=== PATIENT | female | born 1955 | race Caucasian/White ===

== ENCOUNTER 2017-04-01 09:59 | Emergency (ER) | payer SELFPAY ==
[~2017-04-01] VITALS: Ht 160 cm; Wt 118.0 kg
[~2017-04-01 09:59] MED LIST: ALBU8I INH; METH750T2 PO; TRAM50 PO
[2017-04-01 10:01] VITALS: BP 139/62; PULSE 64; RESP 36; TEMP 97.3; O2SAT 98
[2017-04-01] MEDS ORDERED: IBUP800T23 PO (10:34)
[2017-04-01] MEDS ORDERED: ALBUAER3 INH (10:34)
--- NOTE | 2017-04-01 10:47 | PD ---
HPI Chief Complaint: Respiratory Symptoms Time Seen by Provider: 10:25 Travel History International Travel<30 days: No Contact w/Intl Traveler<30days: No Traveled to known affect area: No History of Present Illness HPI 61-year-old female came to the emergency room with history of shortness of breath last night. Patient says she was unable to sleep because he kept waking her up with a sensation like she was choking. Patient says she has never had this before. There was no chest pain associated with it. She does have history of anxiety and is wondering if it could be anxiety because she feels like when she came in the room she has come down. She says she's never been diagnosed with COPD or asthma but she does have an inhaler at home that she uses for occasional shortness of breath. Patient says that this morning she used 2 puffs of her inhaler and is wondering if that could be the reason that she is feeling better now. Patient did have significant tachypnea in triage. She says she does not have insurance or money and hence does not have a primary care. She did not have any workup done in past 3-4 years. She is not taking any medications either even though she supposed to take medications for depression. No history of suicidal ideations. She seems comfortable and kept apologizing because she thinks she now feels silly to come to the emergency room. [facility] Past Medical History Narrative Medical List of her past medical, surgical, social and family history is reviewed from the nursing note. Hx Anticoagulant Therapy: No Asthma: Yes Bipolar Disorder: Yes Anxiety: Yes Depression: Yes Heart Rhythm Problems: No Cardiac Catheterization: No Cardiovascular Problems: No High Cholesterol: No Chemotherapy: No Congestive Heart Failure: No Cerebrovascular Accident: No Diabetes: No Diminished Hearing: Yes (BILAT HEARING AIDS) Fibromyalgia: Yes Hypertension: No Psychiatric: Yes (PTSD) Respiratory: No Myocardial Infarction: No Tetanus Vaccination: > 5 Years Influenza Vaccination: No ?: Unknown Menopausal: Yes : 2 Para: 1 : 1 Past Surgical History Section: Yes Cholecystectomy: Yes Coronary Artery Bypass Graft: No Genitourinary Surgery: Yes (CYSTOSCOPY) Gynecologic Surgery: Yes (Hysterectomy) Hysterectomy: No Social History Alcohol Use: No Tobacco Use: No Substance Use: No Allergies-Medications (Allergen,Severity, Reaction): Coded Allergies: Codeine (Verified Allergy, Severe, UNKNOWN, 04/01/17) Percodan (Verified Allergy, Severe, 04/01/17) Naprosyn (Verified Allergy, Unknown, 04/01/17) Comments List of her allergies reviewed from the nursing note. Reported Meds & Prescriptions Reported Meds & Active Scripts Active Reported Ibuprofen 800 Mg Tab 800 Mg PO Q8H PRN Proair Hfa 8.5 GM Inh (Albuterol Sulfate) 90 Mcg/Act Aer 2 Puff INH Q6H PRN 108 mcg/actuation Narrative Medication List of her home medications reviewed from the nursing note. Review of Systems Except as stated in HPI: all other systems reviewed are Neg Physical Exam Narrative GENERAL: Awake, alert, morbidly obese, anxious SKIN: Focused skin assessment warm/dry. HEAD: Atraumatic. Normocephalic. EYES: Pupils equal and round. No scleral icterus. No injection or drainage. ENT: No nasal bleeding or discharge. Mucous membranes pink and moist. NECK: Trachea midline. No JVD. CARDIOVASCULAR: Regular rate and rhythm. No murmur appreciated. RESPIRATORY: No accessory muscle use. Clear to auscultation. Breath sounds equal bilaterally. GASTROINTESTINAL: Abdomen soft, non-tender, nondistended. Hepatic and splenic margins not palpable. MUSCULOSKELETAL: No obvious deformities. No clubbing. No cyanosis. No edema. NEUROLOGICAL: Awake and alert. No obvious cranial nerve deficits. Motor grossly within normal limits. Normal speech. PSYCHIATRIC: Appropriate mood and affect; insight and judgment normal. Tearful Data Data Last Documented VS Vital Signs Date Time Temp Pulse Resp B/P Pulse Ox O2 Delivery O2 Flow Rate FiO2 04/01/17 11:12 97 Room Air 04/01/17 10:27 67 22 04/01/17 10:01 97.3 139/62 Orders Complete Blood Count With Diff (04/01/17 10:52) Basic Metabolic Panel (Bmp) (04/01/17 10:52) B-Type Natriuretic Peptide (04/01/17 10:52) Magnesium (Mg) (04/01/17 10:52) Troponin I (04/01/17 10:52) Iv Access Insert/Monitor (04/01/17 10:52) Ecg Monitoring (04/01/17 10:52) Oximetry (04/01/17 10:52) Oxygen Administration (04/01/17 10:52) Chest, Single Ap (04/01/17 10:52) Sodium Chloride 0.9% Flush (Ns Flush) (04/01/17 11:00) Labs Laboratory Tests Test 04/01/17 11:11 White Blood Count 6.6 TH/MM3 Red Blood Count 3.99 MIL/MM3 Hemoglobin 12.2 GM/DL Hematocrit 35.4 % Mean Corpuscular Volume 88.7 FL Mean Corpuscular Hemoglobin 30.6 PG Mean Corpuscular Hemoglobin 34.6 % Concent Red Cell Distribution Width 13.9 % Platelet Count 203 TH/MM3 Mean Platelet Volume 6.7 FL Neutrophils (%) (Auto) 59.7 % Lymphocytes (%) (Auto) 31.0 % Monocytes (%) (Auto) 5.0 % Eosinophils (%) (Auto) 3.1 % Basophils (%) (Auto) 1.2 % Neutrophils # (Auto) 3.9 TH/MM3 Lymphocytes # (Auto) 2.0 TH/MM3 Monocytes # (Auto) 0.3 TH/MM3 Eosinophils # (Auto) 0.2 TH/MM3 Basophils # (Auto) 0.1 TH/MM3 CBC Comment DIFF FINAL Differential Comment Sodium Level 141 MEQ/L Potassium Level 4.3 MEQ/L Chloride Level 108 MEQ/L Carbon Dioxide Level 26.0 MEQ/L Anion Gap 7 MEQ/L Blood Urea Nitrogen 14 MG/DL Creatinine 0.62 MG/DL Estimat Glomerular Filtration 97 ML/MIN Rate Random Glucose 146 MG/DL Calcium Level 8.5 MG/DL Magnesium Level 2.0 MG/DL Troponin I LESS THAN 0.02 NG/ML B-Type Natriuretic Peptide 27 PG/ML MDM Medical Decision Making Medical Screen Exam Complete: Yes Emergency Medical Condition: Yes Medical Record Reviewed: Yes Differential Diagnosis Congestive heart failure, pneumonia, COPD exacerbation, anxiety Narrative Course 11:28 AM patient initially did not want any workup since she thinks that this is probably her anxiety and her blood pressure remained stable in triage. I explained to her that without looking at an EKG or a chest x-ray and some basic blood test it would be difficult for me to diagnose her with anxiety during this incidence. However if she does not want a workup due to financial reasons that would be her adult decision but she will have to leave against medical advise. Patient at that point changed her mind and said she would go with the workup. Awaiting for the test results. 12:09 PM blood test results are back and they're within acceptable limits. Chest x-ray was within normal limit as well. Given her body habitus I think patient may be suffering from sleep apnea. Patient agrees with this as well. I will recommend her to follow-up with a chemical engraver for which she will require a probably a referral from a primary care doctor. I will give her the name of the chemical engraver who is on-call for us at this point to make the phone call and follow up with primary care. We'll give her the flyer for the free walk-in clinic as well. Procedures EKG Prior to Arrival: No Diagnosis Primary Impression: Shortness of breath Additional Impressions: possible sleep apnea Morbid obesity with BMI of 45.0-49.9, adult Referrals: Kareem Perry MD 1 week Additional Instructions: Please try to find a primary care for yourselves. Follow-up with the chemical engraver who is name and number been given to you. Making a phone call to get an appointment for possible sleep apnea study. Given your body habitus there is a high chance for your nightly short of breath from sleep apnea in which case you may require a CPAP machine. Please return to the ER if the condition worsens or any other new concerns. You may even try the free walk-in clinic was slight has been given to you. Med/Other Pt SpecificInfo: No Change to Meds Disposition: 01 DISCHARGE HOME Condition: Stable Grupo Lopez MD Apr 01, 2017 10:47 Grupo Lopez MD Apr 01, 2017 10:47
[2017-04-01] MEDS ORDERED: SODIUM CHLORIDE 0.9% FLUSH 10 ML FLUSH IVF PRN (11:00)
[2017-04-01 11:12] VITALS: O2SAT 97
[2017-04-01 11:26] LABS: AUTOMATED NEUTROPHIL # 3.9 TH/MM3 (1.8-7.7); BASOPHIL # 0.1 TH/MM3 (0-0.2); BASOPHIL % 1.2 % (0.0-2.0); EOSINOPHIL # 0.2 TH/MM3 (0-0.4); EOSINOPHIL % 3.1 % (0.0-4.0); HEMATOCRIT 35.4 % (35.0-46.0); HEMO FLAGS DIFF FINAL; MEAN CELL VOLUME 88.7 FL (80.0-100.0); MEAN CORPUSCULAR HEMOGLOBIN 30.6 PG (27.0-34.0); MEAN CORPUSCULAR HGB CONC 34.6 % (32.0-36.0); NEUT % 59.7 % (16.0-70.0); PLATELET COUNT 203 TH/MM3 (150-450); RED BLOOD COUNT 3.99 MIL/MM3 (4.00-5.30); RED CELL DISTRIBUTION WIDTH 13.9 % (11.6-17.2); WHITE BLOOD COUNT 6.6 TH/MM3 (4.0-11.0)
[2017-04-01 11:44] LABS: ANION GAP 7 MEQ/L (5-15); BLOOD UREA NITROGEN 14 MG/DL (7-18); CHLORIDE 108 MEQ/L (98-107); GLOMERULAR FILTRATION RATE 97 ML/MIN (>89); POTASSIUM 4.3 MEQ/L (3.5-5.1); SODIUM (NA) 141 MEQ/L (136-145)
--- NOTE | 2017-04-01 11:56 | RADRPT ---
EXAM DATE/TIME: 04/01/2017 11:19 [facility] COMPARISON: CHEST PA & LAT, December 03, 2015, 0:18. INDICATIONS : Shortness of breath today MEDICAL HISTORY : None. SURGICAL HISTORY : None. ENCOUNTER: Initial ACUITY: 1 day PAIN SCORE: 0/10 LOCATION: Bilateral chest FINDINGS: Single AP view of the chest. The lungs are clear. Mildly prominent cardiac silhouette unchanged. No e vidence of pleural effusion or pneumothorax. CONCLUSION: No acute cardiopulmonary disease identified. Ken Magana MD on April 01, 2017 at 11:53 Board Certified Radiologist. This report was verified electronically.
== END 2017-04-01 12:30 | disposition home or self-care (01) ==
LOC: NEPD 09:59
DX: R06.02 Shortness of breath (principal); E66.01 Morbid (severe) obesity due to excess calories; Z68.42 Body mass index [BMI] 45.0-49.9, adult; J45.909 Unspecified asthma, uncomplicated
CPT/HCPCS: 71010; 80048; 83735; 83880; 84484; 85025; 99284

== ENCOUNTER 2017-06-27 14:43 | Observation (INO) | payer SELFPAY ==
[~2017-06-27] VITALS: Ht 154.9 cm; Wt 116.2 kg
[2017-06-27] VITALS (10 sets, daily range): BP systolic 119–164; BP diastolic 56–89; PULSE 59–156; RESP 16–30; TEMP 97.9; O2SAT 95–98
[~2017-06-27 14:43] MED LIST changes: -ALBU8I INH; +ALBUAER3 INH; +IBUP800T23 PO; -METH750T2 PO; -TRAM50 PO
[2017-06-27] MEDS ORDERED: DILTIAZEM HCL 25 MG/5 ML VIAL IV PUSH ONE (15:15)
[2017-06-27] MEDS ORDERED: SODIUM CHLORIDE 0.9% FLUSH 10 ML FLUSH IVF PRN (15:15)
[2017-06-27] MEDS ORDERED: SODIUM CHLORIDE 0.9% FLUSH 5 ML FLUSH IV FLUSH PRN (15:15)
--- NOTE | 2017-06-27 15:27 | PD ---
HPI . Dyspnea Chief Complaint: Respiratory Symptoms Time Seen by Provider: 14:56 Travel History International Travel<30 days: No Contact w/Intl Traveler<30days: No Traveled to known affect area: No History of Present Illness HPI This patient presents to us by EVAC chief complaint shortness of breath. She has had cough, congestion and shortness of breath for about 5 days. Her shortness of breath has become acutely worse over the last 2 days. She is having dyspnea on exertion. He subsequently called today and she was brought to the hospital. They treated her with an albuterol Neb en route to the hospital. In addition to the dyspnea, she is complaining with a pressure-like sensation in her chest. PFSH Past Medical History Hx Anticoagulant Therapy: Yes Asthma: Yes Bipolar Disorder: Yes Anxiety: Yes Depression: Yes Heart Rhythm Problems: No Cardiac Catheterization: No Cardiovascular Problems: No High Cholesterol: No Chemotherapy: No Congestive Heart Failure: No Cerebrovascular Accident: No Diabetes: No Patient Takes Glucophage: No Diminished Hearing: Yes (BILAT HEARING AIDS, NOT IN PLACED LEFT AT HOME ) Fibromyalgia: Yes Hiatal Hernia: Yes Hypertension: No Medical other: Yes (CHRONIC FATIGUE ) Psychiatric: Yes (PTSD) Respiratory: Yes (BRONCHITIS ) Immunizations Current: Yes Myocardial Infarction: No Pneumonia: Yes Sleep Apnea: Yes Tetanus Vaccination: > 5 Years Influenza Vaccination: No ?: Not Menopausal: Yes : 2 Para: 1 : 1 Past Surgical History Abdominal Surgery: Yes (HERNIA ) Section: Yes Cholecystectomy: Yes Coronary Artery Bypass Graft: No Genitourinary Surgery: Yes (CYSTOSCOPY) Gynecologic Surgery: Yes ( ) Hysterectomy: No Tonsillectomy: Yes Social History Alcohol Use: No Tobacco Use: No (QUIT LONG TIME AGO ) Substance Use: No (DENIES ) Allergies-Medications (Allergen,Severity, Reaction): Coded Allergies: aspirin (Unverified Allergy, Severe, 06/13/17) codeine (Unverified Allergy, Severe, UNKNOWN, 06/13/17) oxycodone (Unverified Allergy, Severe, 06/13/17) naproxen (Unverified Allergy, Unknown, 06/13/17) Reported Meds & Prescriptions Reported Meds & Active Scripts Active Reported Flexeril (Cyclobenzaprine HCl) 10 Mg Tab 10 Mg PO TID PRN Ibuprofen 800 Mg Tab 800 Mg PO Q8H PRN Proair Hfa 8.5 GM Inh (Albuterol Sulfate) 90 Mcg/Act Aer 2 Puff INH Q6H PRN 108 mcg/actuation Review of Systems Except as stated in HPI: all other systems reviewed are Neg Cardiovascular: Positive: Chest Pain or Discomfort Respiratory: Positive: Shortness of Breath Physical Exam Narrative GENERAL: This patient is awake and alert and does not appear to be in any acute distress. SKIN: Warm and dry. HEAD: Atraumatic. Normocephalic. EYES: Pupils equal and round. Extraocular movements are intact. ENT: No nasal bleeding or discharge. Mucous membranes pink and moist. NECK: Trachea midline. Neck is supple. CARDIOVASCULAR: Irregularly irregular rate and rhythm with an initial rate of about 140-150. RESPIRATORY: No accessory muscle use. Diminished breath sounds. I don't hear any wheezing. GASTROINTESTINAL: Abdomen soft, non-tender, nondistended. MUSCULOSKELETAL: No obvious deformities. 2+ pretibial pitting edema. NEUROLOGICAL: Awake and alert. No obvious cranial nerve deficits. Motor grossly within normal limits. Normal speech. PSYCHIATRIC: Appropriate mood and affect; insight and judgment normal. Data Data Last Documented VS Vital Signs Date Time Temp Pulse Resp B/P (MAP) Pulse Ox O2 Delivery O2 Flow Rate FiO2 06/27/17 16:06 88 16 97 Nasal Cannula 2.00 Orders Orders Ecg Monitoring (06/27/17 15:01) Blood Pressure (06/27/17 15:01) Iv Access Insert/Monitor (06/27/17 15:01) Oximetry (06/27/17 15:01) Vital Signs (06/27/17 15:01) Diltiazem Inj (Cardizem Inj) (06/27/17 15:15) Sodium Chloride 0.9% Flush (Ns Flush) (06/27/17 15:15) Complete Blood Count With Diff (06/27/17 15:03) Comprehensive Metabolic Panel (06/27/17 15:03) B-Type Natriuretic Peptide (06/27/17 15:03) Act Partial Throm Time (Ptt) (06/27/17 15:03) Prothrombin Time / Inr (Pt) (06/27/17 15:03) Magnesium (Mg) (06/27/17 15:03) Ckmb (Isoenzyme) Profile (06/27/17 15:03) Troponin I (06/27/17 15:03) Oxygen Administration (06/27/17 15:03) Chest, Single Ap (06/27/17 15:03) Sodium Chloride 0.9% Flush (Ns Flush) (06/27/17 15:15) Electrocardiogram (06/27/17 ) CKMB (06/27/17 15:25) CKMB% (06/27/17 15:25) Consult Cardiology (06/27/17 ) (Hub Use Only)Inp Phy Cons/Ref (06/27/17 ) Admit Order (Ed Use Only) (06/27/17 16:57) Labs Laboratory Tests Test 06/27/17 15:25 White Blood Count 7.7 TH/MM3 Red Blood Count 4.18 MIL/MM3 Hemoglobin 12.8 GM/DL Hematocrit 38.0 % Mean Corpuscular Volume 90.8 FL Mean Corpuscular Hemoglobin 30.5 PG Mean Corpuscular Hemoglobin Concent 33.6 % Red Cell Distribution Width 14.1 % Platelet Count 179 TH/MM3 Mean Platelet Volume 6.3 FL Neutrophils (%) (Auto) 70.4 % Lymphocytes (%) (Auto) 23.0 % Monocytes (%) (Auto) 3.6 % Eosinophils (%) (Auto) 2.3 % Basophils (%) (Auto) 0.7 % Neutrophils # (Auto) 5.4 TH/MM3 Lymphocytes # (Auto) 1.8 TH/MM3 Monocytes # (Auto) 0.3 TH/MM3 Eosinophils # (Auto) 0.2 TH/MM3 Basophils # (Auto) 0.1 TH/MM3 CBC Comment DIFF FINAL Differential Comment Prothrombin Time 10.3 SEC Prothromb Time International Ratio 0.9 RATIO Activated Partial Thromboplast Time 21.4 SEC Blood Urea Nitrogen 14 MG/DL Creatinine 0.81 MG/DL Random Glucose 187 MG/DL Total Protein 7.6 GM/DL Albumin 3.1 GM/DL Calcium Level 8.4 MG/DL Magnesium Level 2.0 MG/DL Alkaline Phosphatase 120 U/L Aspartate Amino Transf (AST/SGOT) 27 U/L Alanine Aminotransferase (ALT/SGPT) 28 U/L Total Bilirubin 0.2 MG/DL Sodium Level 141 MEQ/L Potassium Level 3.8 MEQ/L Chloride Level 107 MEQ/L Carbon Dioxide Level 23.6 MEQ/L Anion Gap 10 MEQ/L Estimat Glomerular Filtration Rate 71 ML/MIN Total Creatine Kinase 404 U/L Creatine Kinase MB 2.5 NG/ML Creatine Kinase MB % 0.6 % Troponin I 0.03 NG/ML B-Type Natriuretic Peptide 75 PG/ML MDM Medical Decision Making Medical Screen Exam Complete: Yes Emergency Medical Condition: Yes Medical Record Reviewed: Yes (medical history significant for asthma, obesity and bipolar disorder.) Interpretation(s) Initial EKG shows atrial fibrillation with a rapid ventricular response. Repeat EKG shows a normal sinus rhythm with no acute ischemic changes. Differential Diagnosis Differential diagnosis of dyspnea includes but is not limited to congestive heart failure, pneumonia, wheezing, pneumothorax, pulmonary embolism Narrative Course This patient presents to us by EVAC with the chief complaint of dyspnea. She was found to be in atrial fibrillation with rapid ventricular response at presentation. IV Cardizem was ordered. I went back to reassess the patient couple minutes later and she was in a sinus rhythm. She has not yet received her Cardizem. The nurse reports that the patient is a difficult IV stick and she has not yet IV access. The nurse did not notice the spontaneous cardiac conversion. CBC & BMP Diagram 06/27/17 15:25 Total Protein 7.6, Albumin 3.1 L, Calcium Level 8.4 L, Magnesium Level 2.0, Alkaline Phosphatase 120 H, Aspartate Amino Transf (AST/SGOT) 27, Alanine Aminotransferase (ALT/SGPT) 28, Total Bilirubin 0.2 CK is 404 but MB is 2.5. Troponin is 0.03. BNP is 75. Last Impressions Chest X-Ray 06/27/17 1503 Signed Impressions: Service Date/Time: Tuesday, June 27, 2017 15:37 - CONCLUSION: No acute disease. Jg Fernandez Jr., MD This patient has remained in a normal sinus rhythm without medication. I will consult cardiology and plan to admit the patient to the hospitalist for further evaluation of new onset atrial fibrillation. Critical Care Narrative Aggregate critical care time was 35 minutes. Time to perform other separately billable procedures was not included in the critical care time. My time did not include minutes spent treating any other patients simultaneously or on activities that did not directly contribute to the patient's treatment. The services I provided to this patient were to treat and/or prevent clinically significant deterioration due to atrial fibrillation with a rapid ventricular response, dyspnea I provided critical care services requiring my management, as noted below: Chart data review, documentation time, medication orders and management, vital sign assessments/reviewing monitor data, ordering and reviewing lab tests, ordering and interpreting/reviewing x-rays and diagnostic studies, care of the patient and discussion of the patient with the admitting physicians Physician Communication Physician Communication Dr. Hastings, cardiology Dr. Paul, hospitalist Diagnosis Primary Impression: Shortness of breath Additional Impressions: Chest pain Qualified Codes: R07.9 - Chest pain, unspecified Atrial fibrillation Qualified Codes: I48.0 - Paroxysmal atrial fibrillation Admitting Information Admitting Physician Requests: Observation Condition: Stable Estela Delgado MD Jun 27, 2017 15:27
[2017-06-27] MEDS ORDERED: CYCL1TAB29 PO (15:36)
[2017-06-27 15:58] LABS: AUTOMATED NEUTROPHIL # 5.4 TH/MM3 (1.8-7.7); BASOPHIL # 0.1 TH/MM3 (0-0.2); BASOPHIL % 0.7 % (0.0-2.0); EOSINOPHIL # 0.2 TH/MM3 (0-0.4); EOSINOPHIL % 2.3 % (0.0-4.0); HEMO FLAGS DIFF FINAL; LYMPHOCYTE # 1.8 TH/MM3 (1.0-4.8); MEAN CELL VOLUME 90.8 FL (80.0-100.0); MEAN CORPUSCULAR HEMOGLOBIN 30.5 PG (27.0-34.0); MEAN CORPUSCULAR HGB CONC 33.6 % (32.0-36.0); MONO % 3.6 % (0.0-8.0); NEUT % 70.4 % (16.0-70.0); PLATELET COUNT 179 TH/MM3 (150-450); RED BLOOD COUNT 4.18 MIL/MM3 (4.00-5.30); RED CELL DISTRIBUTION WIDTH 14.1 % (11.6-17.2); WHITE BLOOD COUNT 7.7 TH/MM3 (4.0-11.0)
--- NOTE | 2017-06-27 16:06 | RADRPT ---
EXAM DATE/TIME: 06/27/2017 15:37 [facility] COMPARISON: CHEST SINGLE AP, April 01, 2017, 11:19. INDICATIONS : Short of breath. MEDICAL HISTORY : Asthma. SURGICAL HISTORY : Cholecystectomy. Tonsillectomy. ENCOUNTER: Initial ACUITY: 3 days PAIN SCORE: 0/10 LOCATION: Bilateral chest FINDINGS: A single view of the chest demonstrates the lungs to be symmetrically aerated without evidence of mas s, infiltrate or effusion. The cardiomediastinal contours are unremarkable. Osseous structures are intact. CONCLUSION: No acute disease. Jg Fernandez Jr., MD on June 27, 2017 at 16:04 Board Certified Radiologist. This report was verified electronically.
[2017-06-27 16:09] LABS: APTT (PATIENT) 21.4 SEC (24.3-30.1); INTERNATIONAL NORMALIZED RATIO 0.9 RATIO; PROTHROMBIN TIME - PATIENT 10.3 SEC (9.8-11.6)
[2017-06-27 16:15] LABS: ANION GAP 10 MEQ/L (5-15); AST (GOT) 27 U/L (15-37); BICARBONATE 23.6 MEQ/L (21.0-32.0); BLOOD UREA NITROGEN 14 MG/DL (7-18); CHLORIDE 107 MEQ/L (98-107); GLOMERULAR FILTRATION RATE 71 ML/MIN (>89); POTASSIUM 3.8 MEQ/L (3.5-5.1); SODIUM (NA) 141 MEQ/L (136-145)
[2017-06-27 16:21] LABS: ALKALINE PHOSPHATASE 120 U/L (45-117); ALT (GPT) 28 U/L (10-53); CREATINE KINASE 404 U/L (26-192); TOTAL BILIRUBIN ADULT 0.2 MG/DL (0.2-1.0)
[2017-06-27 16:34] LABS: CKMB 2.5 NG/ML (0.5-3.6)
[2017-06-27] MEDS ORDERED: NITROGLYCERIN 0.4 MG SL 25 TABS/BTL SL PRN (17:00)
[2017-06-27] MEDS ORDERED: BISACODYL 10 MG SUPP RECTAL PRN (17:00)
[2017-06-27] MEDS ORDERED: oxyCODONE/ACETAMINOPHEN 10 MG/325 MG TAB PO PRN (17:00)
[2017-06-27] MEDS ORDERED: ACETAMINOPHEN 325 MG TAB PO PRN ×2 (17:00)
[2017-06-27] MEDS ORDERED: MORPHINE SULFATE 4 MG/ML INJ IV PRN ×2 (17:00)
[2017-06-27] MEDS ORDERED: oxyCODONE/ACETAMINOPHEN 5 MG/325 MG TAB PO PRN (17:00)
[2017-06-27] MEDS ORDERED: GLUCAGON 1 MG/ML VIAL OTHER PRN (17:00)
[2017-06-27] MEDS ORDERED: SENNOSIDES 8.6 MG TAB PO PRN (17:00)
[2017-06-27] MEDS ORDERED: LACTULOSE SYRUP 20 GM/30 ML CUP PO PRN (17:00)
[2017-06-27] MEDS ORDERED: NALOXONE HCL 0.4 MG/ML AMP IV PRN (17:00)
[2017-06-27] MEDS ORDERED: MAGNESIUM HYDROXIDE SUSP 30 ML CUP PO PRN (17:00)
[2017-06-27] MEDS ORDERED: DEXTROSE 50% IN WATER 50 ML VIAL(D50) IV PRN (17:00)
[2017-06-27] MEDS ORDERED: SODIUM CHLORIDE 0.9% FLUSH 10 ML FLUSH IV FLUSH PRN ×2 (17:00)
[2017-06-27] MEDS ORDERED: ALPRAZolam 0.25 MG TAB PO PRN (17:00)
[2017-06-27] MEDS: PANTOPRAZOLE SOD 40 MG DELAYED RELEASE TAB PO SCH (17:00)
[2017-06-27] MEDS ORDERED: PROCHLORPERAZINE 25 MG SUPP RECTAL PRN (17:00)
[2017-06-27] MEDS ORDERED: ONDANSETRON HCL 4 MG/2 ML VIAL IVP PRN (17:00)
[2017-06-27] MEDS ORDERED: RESP: ALBUTEROL 2.5 MG/IPRATROPIUM 0.5 MG NEB (PRN) NEB (17:30)
[2017-06-27] MEDS ORDERED: CYCLOBENZAPRINE HCL 10 MG TAB PO PRN (17:45)
--- NOTE | 2017-06-27 18:08 | MH ---
cc: CAMRYN ORELLANA VANCE DATE OF ADMISSION 06/27/[address] Sukhdeep Hastings. HISTORY OF PRESENT ILLNESS The patient came in through the emergency department with initial complaint of respiratory symptoms. The patient is a 61-year-old morbidly obese female who presented to the emergency room by [facility] with increasing shortness of breath, has had cough, congestion and shortness of breath for about five days. Her shortness of breath has become worse. Over the less two days, she is having dyspnea on exertion and subsequently called today and was brought to the hospital. They treated her with albuterol en route. She has had dyspnea and gas had pressure-like sensation in her chest and chest pain. PAST MEDICAL HISTORY 1. History of some sort of anticoagulant therapy 2. History of asthma. 3. History of bipolar disorder 4. History of anxiety and depression. 5. History of bilateral hearing aids. 6. History of fibromyalgia. 7. History of hiatal hernia. 8. History of hypertension, 9. History of chronic fatigue syndrome. 10. History of PTSD 11. History of bronchitis 12. History of pneumonia and sleep apnea. 13. 2, para 1, one . PAST SURGICAL HISTORY 1. Hernia repair 2. section 3. Cholecystectomy, 4. Cystoscopy. 5. Tonsillectomy. SOCIAL HISTORY Denies any alcohol. She states she quit smoking a long time ago. Denies any substance abuse. ALLERGIES QUESTION ASPIRIN, OXYCODONE AND NAPROSYN MEDICATIONS Home medications she has been taking - 1. Flexeril, 2. Ibuprofen 3. ProAir HFA. REVIEW OF SYSTEMS She has had chest pain and discomfort and shortness of breath. Denies any nausea, vomiting or diarrhea, constipation, fever, chills, dysuria, urgency, frequency, hematuria, hematemesis or hematochezia. Denies any seizures or strokes. Has had the chest pain and palpitations. VITAL SIGNS: When she came in included the following: Temperature was afebrile, pulse was 88, respirations 16, pulse was 97. Vital signs: Pulse was in the 150s to 130s and then came down to the 80s, blood pressure 168/80 then 132/59 then 119/58. She is 97% on a couple liters by nasal cannula. REVIEW OF SYSTEMS 14 point review of systems done only pertinent positives listed. PHYSICAL EXAMINATION GENERAL: She is awake, alert, appears to be in some moderate distress. SKIN: Warm and dry. HEENT: Head is normocephalic, atraumatic. Pupils equal, round, reactive to light and accommodation. Extraocular muscles are intact. Oral mucosa is moist. Oropharynx is clear. Tongue is midline. NECK: There is no JVD, no thyromegaly. No carotid bruits. HHEART: Irregularly irregular. There is an S1-S2. No S3-S4. No heave or thrill or rub or gallop. LUNGS: Essentially some mild accessory muscle use. Some scattered rhonchi and maybe some mild wheezes. ABDOMEN: Soft, nontender, nondistended. Positive bowel sounds. Obese. EXTREMITIES: No clubbing or cyanosis, maybe +1-2 lower extremity edema. NEUROLOGIC: Cranial nerves II-XII appear grossly intact. Deep tendon reflexes 2/4 in upper extremity and lower-extremity bilaterally. Skin is warm and dry. No obvious rashes. PSYCHIATRIC: Appropriate mood and affect. Insight and judgment appears normal. The patient does not appear comfortable, appears to be in some moderate distress. LABORATORY DATA White blood cell count was 7.7, hemoglobin was 12.8, hematocrit was 38.0, platelet count was 179. Her PT was 10.3, INR was 0.9, PTT is 21.4. Sodium is 141, potassium is 3.8, chloride is 107, carbon dioxide is 23.6, anion gap is 10, estimated GFR is 71. Total CK is 404, CK-MB was 2.5, CK-MB percent is 0.6, troponin 0.03. BNP was 75. BUN is 14, creatinine 0.81, random glucose 187, total protein is 7.6, albumin is 3.1, calcium is 8.4, magnesium is 2.0, alk phos is 120, ALT is 28, AST is 27, total bilirubin 0.2. CARDIOLOGY STUDIES Her EKG shows paced atrial fibrillation with RVR with some ST depression. Abnormal EKG at 140 beats per minute. The repeat EKG shows sinus rhythm, minimal ST depression, borderline EKG at 90 beats per minute after she converted out of atrial fibrillation. IMAGING STUDIES Chest x-ray showed no acute disease. IMPRESSION 1. Chest pain, shortness of breath with A. Fib RVR that converted into sinus rhythm while she was here. 2. We will consult Dr. Jolley and we will trend troponins. 3. Bronchitis. We will continue on DuoNebs, Mucinex and steroids. 4. COPD. DuoNebs and steroids. 5. Atrial fibrillation converted into sinus rhythm. We will get an echocardiogram. 6. Diabetes mellitus. 7. Obstructive sleep apnea by history. 8. Morbid obesity. 9. All of these chronic issues including the following of history of bronchitis, history of sleep apnea, history of hiatal hernia, history of fibromyalgia, bilateral carpal tunnel disease, history of PTSD and bipolar and depression and anxiety and long-term history of tobacco abuse but none recently. Her family history is unknown because she is adopted. We will continue to follow her. Orders have been placed. We will continue on albuterol and Atrovent, continue on Solu-Medrol and oxygen. We will continue on antiemetics and antinausea medication. Continue on Protonix. Continue on Mucinex. Continue on morphine as needed. Continue on Tylenol as needed. Continue on low-dose sliding scale and Accu-Cheks a.c. and at bedtime. Continue on Lovenox 160 mg subcu b.i.d. Continue on Xanax as needed for anxiety. Continue on Tylenol as needed and morphine as needed and Percocet as needed. We will consult clinical trial educator. We will get a.m. labs with a CBC, CMP, TSH, free T4, hemoglobin A1c, mag and phos. We will continue with troponins and cardiac enzymes. We will continue with a diabetic diet and heart healthy diet and keep her n.p.o. after midnight. Consult cardiology and diabetic education and case management. We will get a 2-D echo. We will continue to follow her. I will place her in observation. Hopefully, will be improved in the next day or so so that she can be discharged to home. We will continue on DVT and GI prophylaxis as stated. Monitor her throughout the admission for any other issues that may arise. Camryn Orellana, DO ZHOU/ /5:30 PM /5:44 PM [facility]ITALMaricel
[2017-06-27] MEDS ORDERED: methylPREDNISolone SOD SUCC 125 MG/2 ML VIAL IV PUSH ONE (19:45)
[2017-06-27] MEDS: ENOXAPARIN SODIUM 80 MG/0.8 ML SYRINGE SQ SCH (20:00)
[2017-06-27] MEDS: SODIUM CHLORIDE 0.9% FLUSH 10 ML FLUSH IV FLUSH SCH (20:31)
[2017-06-27] MEDS: guaiFENesin E.R. 600 MG TAB PO SCH (20:31)
[2017-06-27] MEDS: DOCUSATE SODIUM 50 MG/SENNA 8.6 MG TAB PO SCH (20:31)
[2017-06-27] MEDS: RESP: ALBUTEROL 2.5 MG/IPRATROPIUM 0.5 MG NEB (SCH) NEB (20:40)
[2017-06-27] MEDS: INSULIN ASPART SUPPLEMENTAL SCALE SQ SCH (21:00)
[2017-06-27] MEDS ORDERED: SODIUM CHLORIDE 0.9% FLUSH 10 ML FLUSH IV FLUSH SCH (21:00)
[2017-06-27] MEDS: methylPREDNISolone SOD SUCC 125 MG/2 ML VIAL IV PUSH SCH (23:09)
[2017-06-28] VITALS (12 sets, daily range): BP systolic 103–135; BP diastolic 52–70; PULSE 60–76; RESP 17–19; TEMP 97.6–98.2; O2SAT 96–98
[2017-06-28 03:32] LABS: AUTOMATED NEUTROPHIL # 6.6 TH/MM3 (1.8-7.7); BASOPHIL # 0.1 TH/MM3 (0-0.2); EOSINOPHIL # 0.1 TH/MM3 (0-0.4); HEMATOCRIT 37.9 % (35.0-46.0); HEMO FLAGS DIFF FINAL; LYMPH % 8.1 % (9.0-44.0); LYMPHOCYTE # 0.6 TH/MM3 (1.0-4.8); MEAN CELL VOLUME 90.1 FL (80.0-100.0); MEAN CORPUSCULAR HEMOGLOBIN 30.3 PG (27.0-34.0); MEAN CORPUSCULAR HGB CONC 33.6 % (32.0-36.0); MONO % 0.2 % (0.0-8.0); NEUT % 89.7 % (16.0-70.0); PLATELET COUNT 228 TH/MM3 (150-450); RED BLOOD COUNT 4.21 MIL/MM3 (4.00-5.30); RED CELL DISTRIBUTION WIDTH 14.4 % (11.6-17.2); WHITE BLOOD COUNT 7.4 TH/MM3 (4.0-11.0)
[2017-06-28] MEDS: RESP: ALBUTEROL 2.5 MG/IPRATROPIUM 0.5 MG NEB (SCH) NEB ×2 (03:35→08:04)
[2017-06-28 03:44] LABS: ANION GAP 8 MEQ/L (5-15); AST (GOT) 21 U/L (15-37); BICARBONATE 26.2 MEQ/L (21.0-32.0); BLOOD UREA NITROGEN 16 MG/DL (7-18); CHLORIDE 107 MEQ/L (98-107); GLOMERULAR FILTRATION RATE 82 ML/MIN (>89); MAGNESIUM 2.1 MG/DL (1.5-2.5); POTASSIUM 3.9 MEQ/L (3.5-5.1); SODIUM (NA) 141 MEQ/L (136-145)
[2017-06-28 03:53] LABS: ALKALINE PHOSPHATASE 121 U/L (45-117); ALT (GPT) 25 U/L (10-53); CREATINE KINASE 382 U/L (26-192); FREE T4 1.12 NG/DL (0.76-1.46); HDL CHOLESTEROL 49.6 MG/DL (40.0-60.0); LDL CHOLESTEROL 109 MG/DL (0-99); TOTAL BILIRUBIN ADULT 0.4 MG/DL (0.2-1.0)
[2017-06-28 04:05] LABS: CKMB 2.2 NG/ML (0.5-3.6)
[2017-06-28] MEDS: methylPREDNISolone SOD SUCC 125 MG/2 ML VIAL IV PUSH SCH (06:21)
[2017-06-28] MEDS: INSULIN ASPART SUPPLEMENTAL SCALE SQ SCH ×4 (06:33→22:55)
[2017-06-28] MEDS: ENOXAPARIN SODIUM 80 MG/0.8 ML SYRINGE SQ SCH ×2 (08:00→22:20)
--- NOTE | 2017-06-28 08:50 | HHI.PR ---
Subjective Remarks Follow-up for shortness of breath. The patient states that she had been having chest congestion and sinus congestion for the past few days. She had been coughing clear sputum, and did not feel like she had an infection. She states that yesterday she became extremely short of breath and could not speak. She had associated chest tightness. She denies any palpitations or heart fluttering. She states she feels 100% better today. She was recently diagnosed with sleep apnea, but has not been able to follow up with pulmonology. She does have a history of asthma in the past. Objective Vitals Vital Signs Date Time Temp Pulse Resp B/P (MAP) Pulse Ox O2 Delivery O2 Flow Rate FiO2 06/28/17 07:51 97.6 76 17 126/60 (82) 96 06/28/17 07:03 61 06/28/17 07:02 71 06/28/17 04:59 97.9 73 18 135/70 (91) 97 06/28/17 01:07 97.9 73 18 135/64 (87) 97 06/27/17 23:54 70 06/27/17 21:55 97.9 59 16 150/89 (109) 95 06/27/17 20:40 98 Nasal Cannula 2.00 06/27/17 18:46 06/27/17 18:00 60 16 125/56 (79) 97 Nasal Cannula 2.00 06/27/17 17:15 97 Nasal Cannula 2.00 06/27/17 17:00 70 18 123/56 (78) 95 Nasal Cannula 2.00 06/27/17 16:06 88 16 97 Nasal Cannula 2.00 06/27/17 15:25 83 17 119/58 (78) 95 Nasal Cannula 2.00 06/27/17 15:11 134 132/59 (83) 06/27/17 15:11 134 24 132/59 (83) 97 Nasal Cannula 2.00 06/27/17 15:00 97 Nasal Cannula 2.00 06/27/17 14:55 30 95 Room Air 06/27/17 14:55 156 30 164/80 (108) 97 Room Air 06/27/17 14:55 154 164/80 (108) 06/27/17 14:55 156 30 164/80 (108) 97 I/O 8/29/17 806/27/17 06/28/17 06/28/17 06/28/17 07:00 15:00 23:00 07:00 15:00 23:00 Intake Total 0 ml Balance 0 ml Intake Oral 0 ml IV Total 0 ml # Voids 1 Result Diagram: 06/28/177 06/28/17 0227 Imaging Last Impressions Chest X-Ray 06/27/17 1503 Signed Impressions: Service Date/Time: Tuesday, June 27, 2017 15:37 - CONCLUSION: No acute disease. Jg Fernandez Jr., MD Objective Remarks GENERAL: Well-developed well-nourished morbidly obese. In no acute distress. SKIN: Warm and dry. No lesions noted. HEENT: Normocephalic. Pupils equal and round. Mucous membranes pink and moist. CARDIOVASCULAR: Regular rate and rhythm. No murmur appreciated. RESPIRATORY: No accessory muscle use. Clear to auscultation. No wheezing. GASTROINTESTINAL: Abdomen soft, non-tender, nondistended. Bowel sounds x4. MUSCULOSKELETAL: No obvious deformities. No clubbing or cyanosis. Trace lower extremity edema. NEUROLOGICAL: Awake and alert. No focal neurological deficits. Moves upper and lower extremities spontaneously. Normal speech. PSYCHIATRIC: Appropriate mood and affect; insight and judgment normal. A/P Assessment and Plan 61-year-old female with past medical history of asthma, JORDAN who presented for shortness of breath and chest tightness Shortness of breath: Unclear etiology, possible asthma exacerbation, rapid A. fib, ACS, ect. Chest x-ray clear. Treat underlying etiologies as below O2 as needed New onset A. fib with RVR: Initial EKG showed rapid atrial fibrillation versus sinus tachycardia, rate 149. Heart rate spontaneously converted to NSR and has been controlled on telemetry overnight. TSH and electrolytes within normal limits. Cardiology has been consulted Monitor on telemetry Elevated troponin: Troponin 0.03, 0.15, 0.09. Patient presented with shortness breath and chest tightness. Demand ischemia from A. fib vs NSTEMI. Initial EKG showed ST depressions in V3-5. Patient was started on therapeutic Lovenox Cardiology consulted Aspirin allergy Acute Asthma/COPD exacerbation: Reportedly patient was having wheezing upon admission, which has improved. Taper IV steroids Hold scheduled nebs with tachycardia, continue as needed Hyperglycemia: Reactive secondary to dyspnea and steroids versus new onset diabetes. Hemoglobin A1c pending Monitor Accu-Cheks and sliding scale coverage DVT prophylaxis: On Lovenox Discharge Planning Disposition pending cardiology recommendations and continued improvement in dyspnea. Warren Dickey Jun 28, 2017 08:50
[2017-06-28] MEDS: DOCUSATE SODIUM 50 MG/SENNA 8.6 MG TAB PO SCH ×2 (09:00→22:19)
[2017-06-28] MEDS: PANTOPRAZOLE SOD 40 MG DELAYED RELEASE TAB PO SCH (09:00)
[2017-06-28] MEDS: guaiFENesin E.R. 600 MG TAB PO SCH ×2 (09:00→22:20)
[2017-06-28] MEDS ORDERED: PNEUMOCOCCAL POLYVALENT INJ 25 MCG/0.5 ML SYR IM ONE (10:00)
[2017-06-28] MEDS ORDERED: INFLUENZA VIRUS VACCINE (QUADRIVALENT) 0.5 ML SYR IM ONE (10:00)
[2017-06-28 10:26] LABS: HEMOGLOBIN A1a 0.9 %; HEMOGLOBIN A1b 1.8 %; HEMOGLOBIN Ao 83.7 %; HEMOGLOBIN LA1C 2.8 %; HEMOGLOBIN P3 3.8 %
[2017-06-28] MEDS: SODIUM CHLOR 0.9% 1000 ML INJ 1,000 ML IV SCH ×2 (10:27→22:21)
[2017-06-28] MEDS: SODIUM CHLORIDE 0.9% FLUSH 10 ML FLUSH IV FLUSH SCH ×2 (10:28→21:00)
[2017-06-28] MEDS: DILTIAZEM-CD 240 MG CAP ER PO SCH (11:13)
[2017-06-28] MEDS: FLUTICASONE PROPIONATE 50 MCG/ACT 16 GM NASAL SPRAY EACH NARE SCH (11:13)
--- NOTE | 2017-06-28 11:18 | MB ---
cc: PATEL SUAREZ M.D. DATE OF CONSULTATION: 06/28/2017 REASON FOR CONSULTATION Evaluation of rapid atrial fibrillation. HISTORY OF PRESENT ILLNESS Leticia Vega is a 61-year-old woman with no previous history of heart disease. She has multiple medical problems. She has morbid obesity. She states she has fibromyalgia. She states she has never been diagnosed with hypertension before. She has a longstanding history of difficulty breathing. Back in March she has a sleep study performed that showed she had sleep apnea and she has been sleeping on her left side ever since then. She has not been evaluated by a physician she says in several years because of lack of insurance. She describes upper airway and nasal sinus congestion with difficulty breathing. She is not able to lay flat. She does not have that much edema except by the end of the day after working all day she notes a little swelling in her feet. She has been having progressive dyspnea and shortness of breath since last weekend. She describes nasal congestion. She has a nonproductive cough. She had not been able to sleep well. Yesterday which is the day of admission her shortness of breath got much worse and she got significantly panicky. She had difficulty talking. She tried to call 911 and was too short of breath to be able to talk. She only ventured out to the clubhouse near her home to get attention and have [facility] bring her in. Initially she was in atrial fibrillation with RVR and had ST depressions in multiple leads. She was treated with nebulizer on her way into the hospital. In the ER she converted back to sinus rhythm prior to receiving Cardizem. She is still in sinus rhythm at this time. The patient does not have any cardiac history but she does get chest discomfort described as a tightness in her chest. This typically is associated when her breathing gets worse. She has never had this tightness in the chest without associated dyspnea. She had tightness in her chest yesterday when she was having this panicky shortness of breath problem and has slightly elevated troponins. She no longer has chest tightness at this time. She briefly went to the [facility] clinic and they suggested an ENT referral because they thought she had something blocking her upper airway and that it was more of an upper airway problem than it was her lungs. I am getting a pulmonary consult to help get her evaluated. PAST MEDICAL HISTORY 1. Morbid obesity. 2. Fibromyalgia. 3. PTSD. 4. Sleep apnea. 5. Degenerative joint disease in her knees which she says are [id number]. 6. Chronic back problems for which she has had a previous ER trip to [facility]. 7. Previous proctitis which is currently not bothering her. 8. Pain in her left hip. SOCIAL HISTORY She is . She has one handicap son who has renal failure and living in an [place] in [place]. Her mother is Va Saenz who is a patient of mine. The patient works at [employer] in [facility] in the [employer] shop. She has had financial problems and lost her house and is now living in an apartment pain for by Social Security. FAMILY HISTORY Unobtainable because she is adopted. REVIEW OF SYSTEMS Notable for pain in her knees, pain in her hip, pain in her back, depression symptoms and constipation intermittently. No bleeding. No hematuria. No hematochezia. She has had some vaginal spotting noted a few times last year and also noticed this admission. PHYSICAL EXAMINATION GENERAL: A morbidly obese white female. She has significant airway noise and I cannot tell if it is bronchial or upper airway noise. She is able to talk okay but she is mildly tachypneic during the whole visit. She states she is unable to lie down. VITAL SIGNS: Her vital signs are charted. She is in sinus rhythm. Blood pressures were elevated when she first came in but they have come down to normal. HEENT: Unremarkable. NECK: Thick. JVD cannot be assessed. There are no carotid bruits. CHEST: There are some expiratory wheezes and I think some upper airway stridor type noise. CARDIAC: S1, S2, regular rate and rhythm. I do not hear murmurs or gallops. ABDOMEN: Morbidly obese. No mass is appreciable. EXTREMITIES: Some mild venous insufficiency changes. Normal pulses. EKG Her initial EKG showed atrial fibrillation with RVR, ST depression in multiple leads. Subsequent EKG showed she was in sinus rhythm with just trivial ST change. A third EKG to me looks essentially normal. LABORATORY Initial troponin 0.03; reached a peak of 0.15 last night and is now down to 0.09. Creatinine is 0.72. Glucoses are elevated consistent with diabetes. Her lipid values show an HDL of 50, LDL 109, triglycerides 71. Albumin is depressed at 3.1. Alkaline phosphatase is elevated at 121. CPK is elevated at 382, but MB fraction is negative. Hematocrit is 37.9 with normal platelet count and normal white count. IMAGING Her chest x-ray shows no mention of congestive heart failure and normal cardiomediastinal contours. IMPRESSION A 61-year-old woman with paroxysmal atrial fibrillation. Her CHADS-VASc score is 2, indicating she would benefit from anticoagulation. She does not have good support mechanisms and currently has no insurance. She obviously is morbidly obese and is having severe breathing problems, probably Pickwickian syndrome with sleep apnea. There is a question of an airway problem. I am going to get a pulmonary consult to help evaluate this. The troponin elevation most likely is just due to the rapid atrial fibrillation. It would be ideal to evaluate for coronary disease. She is not able to lay flat for either stress test or cath at this time. Hopefully her pulmonary status can be tuned up enough to where we can consider one of those. PLAN I am going to initiate Cardizem 240 mg once a day to help prevent recurrences of atrial fibrillation. She obviously needs to be on chronic anticoagulation which is problematic with no insurance and no follow-up. A 2-D echo Doppler has been performed and I will be by to take a look at the results. Further therapy to be determined. MD AMOS Rangel/RADHA /10:32 AM /10:46 AM
[2017-06-28 12:43] LABS: CKMB 1.6 NG/ML (0.5-3.6)
--- NOTE | 2017-06-28 13:42 | MB ---
cc: Jadyn STARKS M.D. DATE OF CONSULTATION: 06/28/2017 HISTORY OF PRESENT ILLNESS Ms. Vega is a 61-year-old white female who presented for the second time within the last few weeks to the emergency room with shortness of breath. She was in atrial fibrillation with RVR at the time of presentation and this was a new finding. She has not had regular medical follow-up though because unfortunately she has not had insurance within the last year. Prior medical history is a little nondescript. She certainly never had any formal pulmonary evaluation, never has smoked on a regular basis, never diagnosed with asthma or emphysema, but she is very obese. Record indicates that she has sleep apnea but she actually has never been tested. She has never had a sleep study, although that had been recommended on the previous ER visit. She does have some chronic back problems, possibly degenerative arthritis. She has converted to sinus rhythm and is feeling better but she was very short of breath on presentation. Chest x-ray was unrevealing. She has had no unusual cough, no congestion. She has intermittent chest pain, not anginal specifically. She denies any chronic swelling in her legs unless she is on them all day. She does work at [employer] but unfortunately cannot afford the insurance there on the exchange. ADDITIONAL PAST HISTORY 1. Cholecystectomy. 2. PTSD. 3. Chronic back problems. 4. Fibromyalgia. ALLERGIES AND MEDICATIONS Reviewed in the medical record. SOCIAL HISTORY She is and lives alone. She has a handicap son who is in a facility in [place]. Employed at [employer]. Basically states [facility] and cannot afford seeing physicians or buying medicines. REVIEW OF SYSTEMS No syncope. No fever. No recent change in bowel habits. No history of ulcer disease. No unusual animal exposures. No recent long travel. PHYSICAL EXAMINATION GENERAL: A very obese white female but comfortable at rest. VITAL SIGNS: Regular rhythm of the heart. Afebrile. Blood pressure 120/60, respirations 17-20. O2 sat 97% on nasal O2. HEENT: Sclera are anicteric. NECK: Neck veins are flat. CHEST: Chest is actually clear. No wheezing, no congestion. HEART: Regular heart rhythm. No harsh murmur. No audible S3. ABDOMEN: A very obese abdomen but soft. A little bit of edema pretibial in both legs. No calf tenderness. No cyanosis or clubbing. ASSESSMENT AND RECOMMENDATIONS Ms. Dasilva presents with apparent new onset of atrial fibrillation, although she has not had regular medical follow-up recently. She was very short of breath with some chest discomfort on presentation. No previous pulmonary evaluation. I have ordered a CTA to further evaluate this dyspnea as well as to exclude thromboembolism as the cause of the atrial fibromyalgia and dyspnea. She also needs a spirometry and room air arterial blood gas. At some point a sleep study probably would be appropriate but she needs to establish some type of follow-up primary care and Case Management has apparently been in to see her to work on that as well. Further diagnostic and/or therapeutic intervention will depend on the results of these initial diagnostic studies and her ongoing clinical course. R. MD BABITA Gerard/RADHA /1:16 PM /1:28 PM
[2017-06-28] MEDS ORDERED: LORazepam 1 MG TAB PO PRN (13:45)
--- NOTE | 2017-06-28 17:20 | EKG ---
Date Performed: 06/27/2017 Time Performed: 14:56:00 PTAGE: 61 years EKG: ATRIAL FIBRILLATION WITH RAPID VENTRICULAR RESPONSE ST DEPRESSION, CONSIDER SUBENDOCARDIAL INJURY Compared to previous tracing, the patient is now in atriala fibrillation With rapid ventricula r response ABNORMAL ECG PREVIOUS TRACING : 09/30/2006 17.03 DOCTOR: Carol Garcia Interpretating Date/Time 06/28/2017 17:20:26
--- NOTE | 2017-06-28 17:23 | EKG ---
Date Performed: 06/27/2017 Time Performed: 20:20:38 PTAGE: 61 years EKG: Sinus rhythm NONSPECIFIC T-WAVE ABNORMALITY Compared to prior tracing no significant change BORDERLINE ECG PREVIOUS TRACING : 06/27/2017 15.27 DOCTOR: Carol Garcia Interpretating Date/Time 06/28/2017 17:21:26
--- NOTE | 2017-06-28 17:23 | EKG ---
Date Performed: 06/27/2017 Time Performed: 15:27:50 PTAGE: 61 years EKG: Sinus rhythm MINIMAL ST DEPRESSION Compared to previous tracing, the patient is no longer in atrial fibrillation BORDERLINE ECG PREVIOUS TRACING : 06/27/2017 14.56 DOCTOR: Carol Garcia Interpretating Date/Time 06/28/2017 17:21:18
--- NOTE | 2017-06-28 18:04 | ECHRPT ---
Indication: a fib flutter CONCLUSIONS Technically difficult study The left ventricular systolic function is low normal with an estimated ejection fraction in the rang e of 50- 55%. Trace mitral valve regurgitation. There is trace tricuspid valve regurgitation. BP: 135 / 70 HR: 73 Rhythm: Sinus MEASUREMENTS (Male / Female) Normal Values Technical Quality:Technically difficult study 2D ECHO LV Diastolic Diameter PLAX 3.6 cm 4.2 - 5.9 / 3.9 - 5.3 cm LV Systolic Diameter PLAX 3.6 cm IVS Diastolic Thickness 1.1 cm 0.6 - 1.0 / 0.6 - 0.9 cm LVPW Diastolic Thickness 0.7 cm 0.6 - 1.0 / 0.6 - 0.9 cm LV Relative Wall Thickness 0.5 RV Internal Dim ED PLAX 1.8 cm LA Systolic Diameter LX 3.4 cm 3.0 - 4.0 / 2.7 - 3.8 cm DOPPLER AV Peak Velocity 249.0 cm/s AV Peak Gradient 24.8 mmHg LVOT Peak Velocity 140.0 cm/s LVOT Peak Gradient 7.8 mmHg Mitral E Point Velocity 85.9 cm/s Mitral A Point Velocity 105.0 cm/s Mitral E to A Ratio 0.8 TR Peak Velocity 206.0 cm/s TR Peak Gradient 17.0 mmHg FINDINGS LEFT VENTRICLE Normal left ventricular size. Wall thickness is normal. The left ventricular systolic function is low normal with an estimated ejection fraction in the rang e of 50- 55%. RIGHT VENTRICLE The right ventricular size is normal. The right ventricular systoilc function is normal. LEFT ATRIUM The left atrial size is normal. RIGHT ATRIUM The right atrial size is normal. ATRIAL SEPTUM The interatrial septum not well visualized. AORTA The aortic root and proximal ascending aorta are not well visualized. MITRAL VALVE Mitral annular calcification is present. Trace mitral valve regurgitation. No mitral valve stenosis. AORTIC VALVE No aortic valve stenosis or regurgitation. TRICUSPID VALVE Grossly normal tricuspid valve. There is trace tricuspid valve regurgitation. No tricuspid valve stenosis. PULMONARY VALVE The pulmonary valve is not well visualized. VESSELS The inferior vena cava is normal in size. PERICARDIUM No pericardial effusion. Chad Ivy DO (Electronically Signed) Final Date:28 June 2017 18:03
[2017-06-28] MEDS: methylPREDNISolone SOD SUCC 40 MG/1 ML VIAL IV SCH (18:28)
[2017-06-28 23:17] LABS: BLOOD GAS BASE EXCESS -1.4 mmol/L (-2-2); BLOOD GAS CARBOXYHEMOGLOBIN 1.1 % (0-4); BLOOD GAS HCO3 23 mmol/L (22-26); BLOOD GAS METHEMOGLOBIN 0.5 % (0-2); BLOOD GAS O2 HGB SATURATION 97 % (90-100); BLOOD GAS OXYGEN CONTENT 16.6 Vol % (12.0-20.0); BLOOD GAS PCO2 36 mmHg (38-42); BLOOD GAS PO2 113 mmHG (61-120); BLOOD GAS TOTAL HGB 12.1 G/DL (12.0-16.0); CRITICAL VALUE NO; DRAW SITE LT RADIAL; LITER FLOW 3 L/M; NUMBER OF ARTERIAL PUNCTURES 1; OXYGEN DEVICE NASAL CANNULA; STAT NO; TEMP CORR TO 98.6; ULNAR PULSE PRESENT
[2017-06-29] VITALS (14 sets, daily range): BP systolic 110–135; BP diastolic 56–70; PULSE 54–78; RESP 17–20; TEMP 97.7–98.4; O2SAT 96–99
[2017-06-29] MEDS: methylPREDNISolone SOD SUCC 40 MG/1 ML VIAL IV SCH ×2 (06:41→17:11)
[2017-06-29] MEDS: INSULIN ASPART SUPPLEMENTAL SCALE SQ SCH ×4 (06:45→21:59)
[2017-06-29] MEDS: ENOXAPARIN SODIUM 80 MG/0.8 ML SYRINGE SQ SCH (09:07)
[2017-06-29] MEDS: DILTIAZEM-CD 240 MG CAP ER PO SCH (09:07)
[2017-06-29] MEDS: guaiFENesin E.R. 600 MG TAB PO SCH ×2 (09:08→21:48)
[2017-06-29] MEDS: FLUTICASONE PROPIONATE 50 MCG/ACT 16 GM NASAL SPRAY EACH NARE SCH (09:08)
[2017-06-29] MEDS: PANTOPRAZOLE SOD 40 MG DELAYED RELEASE TAB PO SCH (09:08)
[2017-06-29] MEDS: DOCUSATE SODIUM 50 MG/SENNA 8.6 MG TAB PO SCH ×2 (09:08→21:48)
[2017-06-29] MEDS: SODIUM CHLORIDE 0.9% FLUSH 10 ML FLUSH IV FLUSH SCH ×2 (09:09→21:48)
--- NOTE | 2017-06-29 09:54 | PD.CARD.PN ---
Subjective Subjective Remarks No angina. SOB a little better Objective Medications Current Medications Medications (Trade) Dose Ordered Sig/[place] Route Start Time Stop Time Status Last Admin (D50w (Vial) Inj) 50 ml UNSCH PRN IV 06/27/17 17:00 (Glucagon Inj) 1 mg UNSCH PRN OTHER 06/27/17 17:00 (NovoLOG SUPPLEMENTAL SCALE) 1 ACHS SLIDING SCALE SQ 06/27/17 21:00 06/28/17 22:55 (NS Flush) 2 ml UNSCH PRN IV FLUSH 06/27/17 17:00 (NS Flush) 2 ml BID IV FLUSH 06/27/17 21:00 06/29/17 09:09 (Tylenol) 650 mg Q4H PRN PO 06/27/17 17:00 (Zofran Inj) 4 mg Q6H PRN IVP 06/27/17 17:00 (Compazine Supp) 25 mg Q12H PRN RECTAL 06/27/17 17:00 (Tylenol) 650 mg Q6H PRN PO 06/27/17 17:00 (Percocet 5-325 Mg) 1 tab Q6H PRN PO 06/27/17 17:00 (Percocet 10-325 Mg) 1 tab Q6H PRN PO 06/27/17 17:00 (Morphine Inj) 2 mg Q3H PRN IV 06/27/17 17:00 (Morphine Inj) 4 mg Q3H PRN IV 06/27/17 17:00 (Narcan Inj) 0.4 mg UNSCH PRN IV 06/27/17 17:00 (Katelynn-Colace) 1 tab BID PO 06/27/17 21:00 06/29/17 09:08 (Milk Of Magnesia Liq) 30 ml Q12H PRN PO 06/27/17 17:00 (Senokot) 17.2 mg Q12H PRN PO 06/27/17 17:00 (Dulcolax Supp) 10 mg DAILY PRN RECTAL 06/27/17 17:00 (Lactulose Liq) 30 ml DAILY PRN PO 06/27/17 17:00 (Nitrostat Sl) 0.4 mg Q5M PRN SL 06/27/17 17:00 (Protonix) 40 mg DAILY PO 06/27/17 17:00 06/29/17 09:08 (Xanax) 0.25 mg TID PRN PO 06/27/17 17:00 06/27/17 20:31 (Lovenox Inj) 160 mg Q12H SQ 06/27/17 20:00 06/29/17 09:07 (Duoneb Neb) 1 ampule Q6HR NEB NEB 06/27/17 22:00 Future Hold 06/28/17 08:04 (Duoneb Neb) 1 ampule Q4HR NEB PRN NEB 06/27/17 17:30 (Mucinex Er) 600 mg BID PO 06/27/17 21:00 06/29/17 09:08 (Flexeril) 10 mg TID PRN PO 06/27/17 17:45 Sodium Chloride 1,000 ml @ 84 mls/hr [id number] IV 06/28/17 08:00 06/28/17 22:21 (SoluMEDROL INJ) 40 mg Q12H IV 06/28/17 18:00 06/29/17 06:41 (Flonase Azael Spr) 2 spray DAILY EACH NARE 06/28/17 10:00 06/29/17 09:08 (Cardizem Cd) 240 mg DAILY PO 06/28/17 10:30 06/29/17 09:07 Vital Signs / I&O Vital Signs Date Time Temp Pulse Resp B/P (MAP) Pulse Ox O2 Delivery O2 Flow Rate FiO2 06/29/17 07:47 97.8 55 20 115/56 (75) 98 06/29/17 07:21 97 Nasal Cannula 3.00 06/29/17 04:22 98.2 78 18 135/70 (91) 98 06/29/17 04:03 57 06/29/17 00:04 62 06/28/17 23:31 98.0 75 18 130/65 (86) 98 06/28/17 20:25 98.1 63 18 135/60 (85) 97 06/28/17 20:00 66 06/28/17 17:08 60 06/28/17 15:21 98.2 66 19 103/52 (69) 98 06/28/17 11:44 98.1 75 18 118/59 (78) 96 Physical Exam Alert Makes resp noise - upper airway, diminished BS, exp wheezes CV S1S2 RRR - tele NSR tr edema Laboratory Laboratory Tests Test 06/28/17 11:40 06/28/17 23:04 Magnesium Level 2.0 MG/DL Total Creatine Kinase 319 U/L Creatine Kinase MB 1.6 NG/ML Creatine Kinase MB % 0.5 % Troponin I 0.03 NG/ML Blood Gas Puncture Site LT RADIAL Blood Gas Patient Temperature 98.6 Blood Gas HCO3 23 mmol/L Blood Gas Base Excess -1.4 mmol/L Blood Gas Oxygen Saturation 97 % Arterial Blood pH 7.41 Arterial Blood Partial Pressure CO2 36 mmHg Arterial Blood Partial Pressure O2 113 mmHG Arterial Blood Oxygen Content 16.6 Vol % Arterial Blood Carboxyhemoglobin 1.1 % Arterial Blood Methemoglobin 0.5 % Blood Gas Hemoglobin 12.1 G/DL Oxygen Delivery Device NASAL CANNULA Blood Gas Liter Flow 3 L/M Assessment and Plan Problem List: (1) Angina pectoris ICD Codes: I20.9 - Angina pectoris, unspecified Plan: continue PO cardizem (2) Orthopnea ICD Codes: R06.01 - Orthopnea Plan: Unable to have SPECT or cath (3) Paroxysmal atrial fibrillation ICD Codes: I48.0 - Paroxysmal atrial fibrillation Plan: Cont diltiazem, ASA (4) Troponin level elevated ICD Codes: R74.8 - Abnormal levels of other serum enzymes Plan: Prob secondary to AF RVR (5) Morbid obesity with BMI of 45.0-49.9, adult ICD Codes: E66.01 - Morbid (severe) obesity due to excess calories; Z68.42 - Body mass index (BMI) 45.0-49.9, adult Status: Acute Sukhdeep Hastings MD Jun 29, 2017 09:54
[2017-06-29] MEDS ORDERED: LORazepam 2 MG/ML VIAL IV PUSH ONE (13:45)
[2017-06-29] MEDS: RESP: ALBUTEROL 2.5 MG/IPRATROPIUM 0.5 MG NEB (SCH) NEB ×2 (14:05→19:46)
--- NOTE | 2017-06-29 14:20 | HHI.PR ---
Subjective Remarks Follow-up for shortness of breath. The patient feels like her breathing is worse today. She feels like her sinus congestion has improved. She is very anxious because pulmonology wants her to have a CAT scan and she has had CAT scans in the past which causes her severe anxiety. She is considering trying to do the pulmonary angiogram with IV Ativan. She would like to breathe better so that she can get home soon. She does not think she can lie flat for stress testing or heart catheter secondary to back pain. She is upset that her blood sugar is high. Objective Vitals Vital Signs Date Time Temp Pulse Resp B/P (MAP) Pulse Ox O2 Delivery O2 Flow Rate FiO2 06/29/17 12:19 98.0 62 20 122/58 (79) 98 06/29/17 07:47 97.8 55 20 115/56 (75) 98 06/29/17 07:21 97 Nasal Cannula 3.00 06/29/17 04:22 98.2 78 18 135/70 (91) 98 06/29/17 04:03 57 06/29/17 00:04 62 06/28/17 23:31 98.0 75 18 130/65 (86) 98 06/28/17 20:25 98.1 63 18 135/60 (85) 97 06/28/17 20:00 66 06/28/17 17:08 60 06/28/17 15:21 98.2 66 19 103/52 (69) 98 Result Diagram: 06/28/1722606/28/17226 Imaging Last Impressions Chest X-Ray 06/27/17 1503 Signed Impressions: Service Date/Time: Tuesday, June 27, 2017 15:37 - CONCLUSION: No acute disease. Jg Fernandez Jr., MD Objective Remarks GENERAL: Well-developed well-nourished morbidly obese. In no acute distress. SKIN: Warm and dry. No lesions noted. HEENT: Normocephalic. Pupils equal and round. Mucous membranes pink and moist. CARDIOVASCULAR: Regular rate and rhythm. No murmur appreciated. RESPIRATORY: No accessory muscle use. Clear to auscultation. Occasional expiratory wheezing on auscultation. Audible upper respiratory stridor. GASTROINTESTINAL: Abdomen soft, non-tender, nondistended. Bowel sounds x4. MUSCULOSKELETAL: No obvious deformities. No clubbing or cyanosis. Trace lower extremity edema. NEUROLOGICAL: Awake and alert. No focal neurological deficits. Moves upper and lower extremities spontaneously. Normal speech. PSYCHIATRIC: Extremely anxious mood and affect; insight and judgment normal. A/P Assessment and Plan 61-year-old female with past medical history of asthma, JORDAN who presented for shortness of breath and chest tightness Shortness of breath: Unclear etiology, possible asthma exacerbation, rapid A. fib, ACS, ect. Reviewed: Chest x-ray clear. ABG unremarkable. Echocardiogram essentially unremarkable. Treat underlying etiologies as below O2 as needed Pulmonology consulted Ideally needs pulmonary angiogram New onset A. fib with RVR: Initial EKG showed rapid atrial fibrillation versus sinus tachycardia, rate 149. Heart rate spontaneously converted to NSR and has been controlled on telemetry overnight. TSH and electrolytes within normal limits. Cardiology consulted, started on Cardizem with improvement in heart rate Monitor on telemetry Elevated troponin: Troponin 0.03, 0.15, 0.09, 0.03. Patient presented with shortness breath and chest tightness. Suspect demand ischemia from rapid A. fib . Initial EKG showed ST depressions in V3-5. Cardiology consulted, patient does not think she'll be able to lie flat for a stress test or heart catheterization Aspirin allergy Acute Asthma/COPD exacerbation: Pulmonology consulted as above Continue IV steroids Scheduled and as needed Nebs Borderline diabetes mellitus with hyperglycemia: Insulin A1c 6.4. Blood glucose likely elevated secondary to steroids. Monitor Accu-Cheks and sliding scale coverage Diabetic education and dietitian consult Plan to start on metformin at discharge DVT prophylaxis: On Lovenox Discharge Planning The patient is still wheezing and requiring a significant amount of oxygen. Follow-up cardiology and pulmonology recommendations. Disposition pending further clinical improvement. Warren Dickey Jun 29, 2017 14:19
[2017-06-29] MEDS ORDERED: IOHEXOL 350 MG/ML 10 ML VIAL (for RAD DIAG) IVCONTRAST ONE (18:00)
--- NOTE | 2017-06-29 18:39 | RADRPT ---
EXAM DATE/TIME: 06/29/2017 17:47 [facility] COMPARISON: No previous studies available for comparison. INDICATIONS : Short of breath. IV CONTRAST: 50 cc Omnipaque 350 (iohexol) IV RADIATION DOSE: 22.09 CTDIvol (mGy) MEDICAL HISTORY : None SURGICAL HISTORY : Cholecystectomy. ENCOUNTER: Initial ACUITY: 1 day PAIN SCALE: 0/10 LOCATION: neck TECHNIQUE: Volumetric scanning of the neck was performed. Using automated exposure control and adjustment of th e mA and/or kV according to patient size, radiation dose was kept as low as reasonably achievable to obtain optimal diagnostic quality images. DICOM format image data is available electronically for r eview and comparison. FINDINGS: NASOPHARYNX: The nasopharyngeal airway has a normal configuration. No mucosal thickening or mass is seen. OROPHARYNX: The intrinsic muscles of the tongue are symmetric. The tonsillar pillars are intact. The prevertebr al soft tissues are not thickened. LARYNX: The supraglottic, glottic, and infraglottic structures are intact. PARAPHARYNGEAL: The parapharyngeal space is intact. SALIVARY GLANDS: The parotid and submandibular glands are intact. LYMPH NODES: No enlarged or necrotic-appearing nodes. THYROID: Homogeneous enhancement without evidence of nodule. BONES: There is prominent hypertrophy and spurring in the cervical spine. CONCLUSION: Negative examination. Brown Ruth MD on June 29, 2017 at 18:35 Board Certified Radiologist. This report was verified electronically.
[2017-06-29] MEDS: SODIUM CHLOR 0.9% 1000 ML INJ 1,000 ML IV SCH ×2 (18:41→21:49)
--- NOTE | 2017-06-29 19:24 | RADRPT ---
EXAM DATE/TIME: 06/29/2017 17:40 [facility] COMPARISON: No previous studies available for comparison. INDICATIONS : Short of breath, evaluate for pulmonary embolus. IV CONTRAST: 50 cc Omnipaque 350 (iohexol) IV RADIATION DOSE: 22.96 CTDIvol (mGy) MEDICAL HISTORY : None SURGICAL HISTORY : Cholecystectomy. ENCOUNTER: Initial ACUITY: 1 day PAIN SCALE: 0/10 LOCATION: chest TECHNIQUE: Volumetric scanning of the chest was performed using a pulmonary embolism protocol MIP images were re constructed. Using automated exposure control and adjustment of the mA and/or kV according to patien t size, radiation dose was kept as low as reasonably achievable to obtain optimal diagnostic quality images. DICOM format image data is available electronically for review and comparison. Follow-up recommendations for detected pulmonary nodules are based at a minimum on nodule size and pa tient risk factors according to Fleischner Society Guidelines. FINDINGS: PULMONARY ARTERIES: No filling defects are seen in the pulmonary arteries through the segmental level. LUNGS: There is no consolidation or pneumothorax . No concerning pulmonary nodule is visualized. PLEURAE: There is no pleural thickening or pleural effusion. MEDIASTINUM: There is good visualization of the great vessels of the middle mediastinum. No evidence of mediastin al or hilar adenopathy/mass. MUSCULOSKELETAL: Within normal limits for patient age. MISCELLANEOUS: The visualized upper abdominal organs demonstrate no acute abnormality. CONCLUSION: No PE. Brown Ruth MD on June 29, 2017 at 19:21 Board Certified Radiologist. This report was verified electronically.
[2017-06-30] VITALS (12 sets, daily range): BP systolic 136–178; BP diastolic 61–82; PULSE 60–82; RESP 19–24; TEMP 97.7–98.6; O2SAT 91–97
[2017-06-30] MEDS: methylPREDNISolone SOD SUCC 40 MG/1 ML VIAL IV SCH (06:01)
[2017-06-30] MEDS: INSULIN ASPART SUPPLEMENTAL SCALE SQ SCH ×4 (06:37→21:55)
[2017-06-30] MEDS: RESP: ALBUTEROL 2.5 MG/IPRATROPIUM 0.5 MG NEB (SCH) NEB ×3 (08:04→19:11)
--- NOTE | 2017-06-30 09:07 | PD.CARD.PN ---
Subjective Subjective Remarks no angina Objective Medications Current Medications Medications (Trade) Dose Ordered Sig/[place] Route Start Time Stop Time Status Last Admin (D50w (Vial) Inj) 50 ml UNSCH PRN IV 06/27/17 17:00 (Glucagon Inj) 1 mg UNSCH PRN OTHER 06/27/17 17:00 (NovoLOG SUPPLEMENTAL SCALE) 1 ACHS SLIDING SCALE SQ 06/27/17 21:00 06/30/17 06:37 (NS Flush) 2 ml UNSCH PRN IV FLUSH 06/27/17 17:00 (NS Flush) 2 ml BID IV FLUSH 06/27/17 21:00 06/29/17 21:48 (Tylenol) 650 mg Q4H PRN PO 06/27/17 17:00 (Zofran Inj) 4 mg Q6H PRN IVP 06/27/17 17:00 (Compazine Supp) 25 mg Q12H PRN RECTAL 06/27/17 17:00 (Tylenol) 650 mg Q6H PRN PO 06/27/17 17:00 (Percocet 5-325 Mg) 1 tab Q6H PRN PO 06/27/17 17:00 (Percocet 10-325 Mg) 1 tab Q6H PRN PO 06/27/17 17:00 (Morphine Inj) 2 mg Q3H PRN IV 06/27/17 17:00 (Morphine Inj) 4 mg Q3H PRN IV 06/27/17 17:00 (Narcan Inj) 0.4 mg UNSCH PRN IV 06/27/17 17:00 (Katelynn-Colace) 1 tab BID PO 06/27/17 21:00 06/29/17 21:48 (Milk Of Magnesia Liq) 30 ml Q12H PRN PO 06/27/17 17:00 (Senokot) 17.2 mg Q12H PRN PO 06/27/17 17:00 (Dulcolax Supp) 10 mg DAILY PRN RECTAL 06/27/17 17:00 (Lactulose Liq) 30 ml DAILY PRN PO 06/27/17 17:00 (Nitrostat Sl) 0.4 mg Q5M PRN SL 06/27/17 17:00 (Protonix) 40 mg DAILY PO 06/27/17 17:00 06/29/17 09:08 (Xanax) 0.25 mg TID PRN PO 06/27/17 17:00 06/27/17 20:31 (Duoneb Neb) 1 ampule Q4HR NEB PRN NEB 06/27/17 17:30 (Mucinex Er) 600 mg BID PO 06/27/17 21:00 06/29/17 21:48 (Flexeril) 10 mg TID PRN PO 06/27/17 17:45 Sodium Chloride 1,000 ml @ 84 mls/hr [id number] IV 06/28/17 08:00 06/29/17 21:49 (SoluMEDROL INJ) 40 mg Q12H IV 06/28/17 18:00 06/30/17 06:01 (Flonase Azael Spr) 2 spray DAILY EACH NARE 06/28/17 10:00 06/29/17 09:08 (Cardizem Cd) 240 mg DAILY PO 06/28/17 10:30 06/29/17 09:07 (Lovenox Inj) 40 mg DAILY SQ 06/30/17 09:00 (Duoneb Neb) 1 ampule TID NEB NEB 06/29/17 14:00 06/30/17 08:04 (Symbicort 80-4.5 Mcg Inh) 1 puff Q12HR INH 06/30/17 09:00 Vital Signs / I&O Vital Signs Date Time Temp Pulse Resp B/P (MAP) Pulse Ox O2 Delivery O2 Flow Rate FiO2 06/30/17 08:00 97 Nasal Cannula 3.00 06/30/17 07:43 97.7 60 22 141/66 (91) 97 06/30/17 04:41 98.3 72 19 137/61 (86) 96 06/30/17 04:04 70 06/30/17 00:13 63 06/29/17 23:39 98.1 64 17 127/67 (87) 99 06/29/17 21:21 67 06/29/17 20:30 Nasal Cannula 3.00 Humidified 06/29/17 19:48 99 Nasal Cannula 3.00 06/29/17 19:15 97.7 61 18 127/60 (82) 99 06/29/17 17:38 57 06/29/17 16:25 98.4 54 20 110/58 (75) 96 06/29/17 12:19 98.0 62 20 122/58 (79) 98 06/29/17 12:08 60 I/O 06/29/17 06/29/17 06/29/17 06/30/17 06/30/17 06/30/17 06:59 14:59 22:59 06:59 14:59 22:59 Intake Total 480 ml Balance 480 ml Intake Oral 480 ml # Voids 3 # Bowel Movements 1 Physical Exam Alert Upper air way stridor on isnspiration, diminished BS, exp wheezes CV S1S2 RRR - tele NSR tr edema Imaging Last [address] 06/29/17 0000 Signed Impressions: Service Date/Time: May 17:47 - CONCLUSION: Negative examination. Brown Ruth MD Assessment and Plan Problem List: (1) Angina pectoris ICD Codes: I20.9 - Angina pectoris, unspecified Plan: resolved (2) Orthopnea ICD Codes: R06.01 - Orthopnea (3) Paroxysmal atrial fibrillation ICD Codes: I48.0 - Paroxysmal atrial fibrillation Plan: Staying in sinus. Has had only i episode (4) Troponin level elevated ICD Codes: R74.8 - Abnormal levels of other serum enzymes Plan: Probably due to the rapid AF (5) Morbid obesity with BMI of 45.0-49.9, adult ICD Codes: E66.01 - Morbid (severe) obesity due to excess calories; Z68.42 - Body mass index (BMI) 45.0-49.9, adult Status: Acute Assessment and Plan I recommend ASA daily (not allergic when I asked her about it) and Diltiazem 240mg daily. I am signing off/ please call Sukhdeep Gore MD Jun 30, 2017 09:07
--- NOTE | 2017-06-30 10:22 | HHI.PR ---
Subjective Remarks Patient reports feeling somewhat better today. She is a poor historian and cannot elaborate on her breathing status. She thinks its better. She would like to go home. Objective Vitals Vital Signs Date Time Temp Pulse Resp B/P (MAP) Pulse Ox O2 Delivery O2 Flow Rate FiO2 06/30/17 08:00 97 Nasal Cannula 3.00 06/30/17 07:43 97.7 60 22 141/66 (91) 97 06/30/17 04:41 98.3 72 19 137/61 (86) 96 06/30/17 04:04 70 06/30/17 00:13 63 06/29/17 23:39 98.1 64 17 127/67 (87) 99 06/29/17 21:21 67 06/29/17 20:30 Nasal Cannula 3.00 Humidified 06/29/17 19:48 99 Nasal Cannula 3.00 06/29/17 19:15 97.7 61 18 127/60 (82) 99 06/29/17 17:38 57 06/29/17 16:25 98.4 54 20 110/58 (75) 96 06/29/17 12:19 98.0 62 20 122/58 (79) 98 06/29/17 12:08 60 I/O 06/29/17 06/29/17 06/29/17 06/30/17 06/30/17 06/30/17 07:00 15:00 23:00 07:00 15:00 23:00 Intake Total 480 ml Balance 480 ml Intake Oral 480 ml # Voids 3 # Bowel Movements 1 Result Diagram: 06/28/17 0227 06/28/17 0227 Imaging Last Impressions Neck CT 06/29/17 0000 Signed Impressions: Service Date/Time: May 17:47 - CONCLUSION: Negative examination. Brown Ruth MD CT Angiography 06/28/17 0000 Signed Impressions: Service Date/Time: May 17:40 - CONCLUSION: No PE. Brown Ruth MD Chest X-Ray 06/27/17 1503 Signed Impressions: Service Date/Time: Tuesday, June 27, 2017 15:37 - CONCLUSION: No acute disease. Jg Fernandez Jr., MD Objective Remarks GENERAL: Morbidly obese female. She has some inspiratory stridor. CARDIOVASCULAR: Normal rate and regular rhythm without murmurs, gallops, or rubs. RESPIRATORY: She does have some inspiratory stridor that improves with coughing. Lungs sounds clear. Could not appreciate any wheezing or rhonchi. GASTROINTESTINAL: Abdomen soft, non-tender, non-distended. Normal active bowel sounds MUSCULOSKELETAL: Extremities without cyanosis, or edema. NEURO: Alert & Oriented x4 to person, place, time, situation. Moves all ext x4 PSYCH: Appropriate mood and affect. A/P Assessment and Plan 61-year-old female with a reported history of asthma, JORDAN who presented for shortness of breath and chest tightness. Shortness of breath: Patient reports it all started with a "head cold and some chest congestion with cough". I suspect the patient might have had a URI. Most likely she has underlying obesity related COPD/possible asthma. Discussed with cardiology. Brief episode of A. fib is likely related to worsening respiratory status. So far cardiac workup is unremarkable for ACS. Agree with cardiology to defer further ischemic workup at this time. - Chest x-ray, CTA, neck CT all unremarkable. - Pulmonology following. PFT has been ordered. I do not see the report. ABG unremarkable but it was done on 3 L nasal cannula. - Plan to wean the patient off oxygen as tolerated. - Transition to oral prednisone. - We will discuss with pulmonology to see if anything else can be offered. New onset A. fib with RVR: Initial EKG showed rapid atrial fibrillation versus sinus tachycardia, rate 149. Heart rate spontaneously converted to NSR and she remained in sinus. TSH and electrolytes within normal limits. - Cardiology followed and recommended to continue Cardizem and aspirin. Discussed with Dr. Hastings today. Elevated troponin: Troponin 0.03, 0.15, 0.09, 0.03. Patient presented with shortness breath and chest tightness. Suspect demand ischemia from rapid A. fib . Initial EKG showed ST depressions in V3-5. See above, per cardiology, continue aspirin and Cardizem. Patient is not a candidate for stress test or heart catheterization at this time given her respiratory status. Acute Asthma/COPD exacerbation: See above Scheduled and as needed Nebs Prediabetes: Insulin A1c 6.4. Blood glucose likely elevated secondary to steroids. Monitor Accu-Cheks and sliding scale coverage Diabetic education and dietitian consult Plan to start on metformin at discharge DVT prophylaxis: On Lovenox Discharge Planning Patient does not have insurance and lack follow-up. She needs to be weaned off oxygen prior to discharge. Case management consulted to assist with discharge planning. Kieran Cooper MD Jun 30, 2017 10:22
[2017-06-30] MEDS: PANTOPRAZOLE SOD 40 MG DELAYED RELEASE TAB PO SCH (10:35)
[2017-06-30] MEDS: DOCUSATE SODIUM 50 MG/SENNA 8.6 MG TAB PO SCH ×2 (10:35→21:32)
[2017-06-30] MEDS: DILTIAZEM-CD 240 MG CAP ER PO SCH (10:35)
[2017-06-30] MEDS: guaiFENesin E.R. 600 MG TAB PO SCH ×2 (10:35→21:32)
[2017-06-30] MEDS: ENOXAPARIN SODIUM 40 MG/0.4 ML SYRINGE SQ SCH (10:36)
[2017-06-30] MEDS: SODIUM CHLORIDE 0.9% FLUSH 10 ML FLUSH IV FLUSH SCH ×2 (10:36→21:32)
[2017-06-30] MEDS: SODIUM CHLOR 0.9% 1000 ML INJ 1,000 ML IV SCH ×2 (10:36→21:34)
[2017-06-30] MEDS: FLUTICASONE PROPIONATE 50 MCG/ACT 16 GM NASAL SPRAY EACH NARE SCH (10:37)
[2017-06-30] MEDS: BUDESONIDE-FORMOTEROL 80/4.5 MCG INHALER INH SCH ×2 (10:37→21:32)
[2017-06-30] MEDS: predniSONE 20 MG TAB PO SCH (21:32)
[2017-07-01] VITALS (8 sets, daily range): BP systolic 128–187; BP diastolic 64–84; PULSE 60–83; RESP 16–24; TEMP 98–98.5; O2SAT 93–99
[2017-07-01] MEDS: SODIUM CHLOR 0.9% 1000 ML INJ 1,000 ML IV SCH (05:58)
[2017-07-01] MEDS: INSULIN ASPART SUPPLEMENTAL SCALE SQ SCH ×4 (06:02→21:28)
[2017-07-01] MEDS: RESP: ALBUTEROL 2.5 MG/IPRATROPIUM 0.5 MG NEB (SCH) NEB ×3 (08:16→20:25)
[2017-07-01] MEDS: DILTIAZEM-CD 240 MG CAP ER PO SCH (08:32)
[2017-07-01] MEDS: guaiFENesin E.R. 600 MG TAB PO SCH ×2 (08:32→21:21)
[2017-07-01] MEDS: PANTOPRAZOLE SOD 40 MG DELAYED RELEASE TAB PO SCH (08:32)
[2017-07-01] MEDS: DOCUSATE SODIUM 50 MG/SENNA 8.6 MG TAB PO SCH ×2 (08:32→21:21)
[2017-07-01] MEDS: predniSONE 20 MG TAB PO SCH (08:33)
[2017-07-01] MEDS: ASPIRIN EC 81 MG TABEC PO SCH (08:33)
[2017-07-01] MEDS: ENOXAPARIN SODIUM 40 MG/0.4 ML SYRINGE SQ SCH (08:33)
[2017-07-01] MEDS: SODIUM CHLORIDE 0.9% FLUSH 10 ML FLUSH IV FLUSH SCH ×2 (08:33→21:32)
[2017-07-01] MEDS: FLUTICASONE PROPIONATE 50 MCG/ACT 16 GM NASAL SPRAY EACH NARE SCH (08:35)
[2017-07-01] MEDS: BUDESONIDE-FORMOTEROL 80/4.5 MCG INHALER INH SCH ×2 (08:35→21:30)
--- NOTE | 2017-07-01 11:42 | HHI.PR ---
Subjective Remarks The patient that she felt a little worse today. She said she ate too much. She said she had shortness of breath and labored breathing. She was concerned about her blood pressure being so high. Discussed with nursing. Objective Vitals Vital Signs Date Time Temp Pulse Resp B/P (MAP) Pulse Ox O2 Delivery O2 Flow Rate FiO2 07/01/17 09:13 94 07/01/17 08:00 98.0 70 16 187/84 (118) 99 07/01/17 04:00 98.3 66 24 156/73 (100) 93 07/01/17 00:17 98.5 66 20 162/74 (103) 96 07/01/17 00:00 Room Air 06/30/17 20:09 75 06/30/17 20:00 Room Air 06/30/17 20:00 98.2 62 20 136/64 (88) 97 06/30/17 19:11 94 21 06/30/17 18:37 Room Air 06/30/17 15:41 98.6 68 22 140/65 (90) 92 06/30/17 14:00 Room Air 06/30/17 13:02 82 06/30/17 12:50 98.5 74 24 178/82 (114) 91 I/O 06/30/17 06/30/17 06/30/17 07/01/17 07/01/17 07/01/17 07:00 15:00 23:00 07:00 15:00 23:00 Intake Total 1267 ml Output Total 500 ml Balance 767 ml Intake Oral 580 ml IV Total 687 ml Output Urine Total 500 ml # Voids 1 Result Diagram: 06/28/1722606/28/17226 Imaging Last Impressions Neck CT 06/29/17 0000 Signed Impressions: Service Date/Time: May 17:47 - CONCLUSION: Negative examination. Brown Ruth MD CT Angiography 06/28/17 0000 Signed Impressions: Service Date/Time: May 17:40 - CONCLUSION: No PE. Brown Ruth MD Chest X-Ray 06/27/17 1503 Signed Impressions: Service Date/Time: Tuesday, June 27, 2017 15:37 - CONCLUSION: No acute disease. Jg Fernandez Jr., MD Objective Remarks GENERAL: Morbidly obese female, sitting up in bed. HEENT: NC, AT. CARDIOVASCULAR: Normal rate and regular rhythm without murmurs, gallops, or rubs. RESPIRATORY: Decreased air movement in all lung higuera. GASTROINTESTINAL: Abdomen soft, non-tender, non-distended. Normal active bowel sounds MUSCULOSKELETAL: Extremities without cyanosis, trace edema. NEURO: Alert & Oriented x4 to person, place, time, situation. Moves all ext x4 PSYCH: Appropriate mood and affect. Medications and IVs Current Medications Medications (Trade) Dose Ordered Sig/Savanna Route Start Time Stop Time Status Last Admin (D50w (Vial) Inj) 50 ml UNSCH PRN IV 06/27/17 17:00 (Glucagon Inj) 1 mg UNSCH PRN OTHER 06/27/17 17:00 (NovoLOG SUPPLEMENTAL SCALE) 1 ACHS SLIDING SCALE SQ 06/27/17 21:00 07/01/17 06:02 (NS Flush) 2 ml UNSCH PRN IV FLUSH 06/27/17 17:00 (NS Flush) 2 ml BID IV FLUSH 06/27/17 21:00 07/01/17 08:33 (Tylenol) 650 mg Q4H PRN PO 06/27/17 17:00 (Zofran Inj) 4 mg Q6H PRN IVP 06/27/17 17:00 (Compazine Supp) 25 mg Q12H PRN RECTAL 06/27/17 17:00 (Tylenol) 650 mg Q6H PRN PO 06/27/17 17:00 (Percocet 5-325 Mg) 1 tab Q6H PRN PO 06/27/17 17:00 (Percocet 10-325 Mg) 1 tab Q6H PRN PO 06/27/17 17:00 (Morphine Inj) 2 mg Q3H PRN IV 06/27/17 17:00 (Morphine Inj) 4 mg Q3H PRN IV 06/27/17 17:00 (Narcan Inj) 0.4 mg UNSCH PRN IV 06/27/17 17:00 (Katelynn-Colace) 1 tab BID PO 06/27/17 21:00 07/01/17 08:32 (Milk Of Magnesia Liq) 30 ml Q12H PRN PO 06/27/17 17:00 (Senokot) 17.2 mg Q12H PRN PO 06/27/17 17:00 (Dulcolax Supp) 10 mg DAILY PRN RECTAL 06/27/17 17:00 (Lactulose Liq) 30 ml DAILY PRN PO 06/27/17 17:00 (Nitrostat Sl) 0.4 mg Q5M PRN SL 06/27/17 17:00 (Protonix) 40 mg DAILY PO 06/27/17 17:00 07/01/17 08:32 (Xanax) 0.25 mg TID PRN PO 06/27/17 17:00 06/27/17 20:31 (Duoneb Neb) 1 ampule Q4HR NEB PRN NEB 06/27/17 17:30 (Mucinex Er) 600 mg BID PO 06/27/17 21:00 07/01/17 08:32 (Flexeril) 10 mg TID PRN PO 06/27/17 17:45 Sodium Chloride 1,000 ml @ 84 mls/hr [id number] IV 06/28/17 08:00 06/30/17 21:34 (Flonase Azael Spr) 2 spray DAILY EACH NARE 06/28/17 10:00 07/01/17 08:35 (Cardizem Cd) 240 mg DAILY PO 06/28/17 10:30 07/01/17 08:32 (Lovenox Inj) 40 mg DAILY SQ 06/30/17 09:00 07/01/17 08:33 (Duoneb Neb) 1 ampule TID NEB NEB 06/29/17 14:00 07/01/17 08:16 (Symbicort 80-4.5 Mcg Inh) 1 puff Q12HR INH 06/30/17 09:00 07/01/17 08:35 (Ecotrin Ec) 81 mg DAILY PO 07/01/17 09:00 07/01/17 08:33 (Deltasone) 40 mg BID PO 06/30/17 21:00 07/01/17 08:33 A/P Assessment and Plan 61-year-old female with a reported history of asthma, JORDAN who presented for shortness of breath and chest tightness. Shortness of breath: Patient reports it all started with a "head cold and some chest congestion with cough". I suspect the patient might have had a URI. Most likely she has underlying obesity related COPD/possible asthma. Discussed with cardiology. Brief episode of A. fib is likely related to worsening respiratory status. So far cardiac workup is unremarkable for ACS. Agree with cardiology to defer further ischemic workup at this time. - Chest x-ray, CTA, neck CT all unremarkable. - Pulmonology following. PFTs has been ordered. ABG unremarkable but it was done on 3 L nasal cannula. - Plan to wean the patient off oxygen as tolerated. - Transition to oral prednisone. Wean to 40 mg daily. - follow up with pulmonary. - repeat CXR. New onset A. fib with RVR: Initial EKG showed rapid atrial fibrillation versus sinus tachycardia, rate 149. Heart rate spontaneously converted to NSR and she remained in sinus. TSH and electrolytes within normal limits. - Cardiology followed and recommended to continue Cardizem and aspirin. Elevated troponin: Troponin 0.03, 0.15, 0.09, 0.03. Patient presented with shortness breath and chest tightness. Suspect demand ischemia from rapid A. fib . Initial EKG showed ST depressions in V3-5. See above, per cardiology, continue aspirin and Cardizem. Patient is not a candidate for stress test or heart catheterization at this time given her respiratory status. Acute Asthma/COPD exacerbation: See above Scheduled and as needed Nebs Prediabetes: Insulin A1c 6.4. Blood glucose likely elevated secondary to steroids. Monitor Accu-Cheks and sliding scale coverage Diabetic education and dietitian consult Plan to start on metformin at discharge - wean steroids. - Levemir 15 units daily. Adjust as needed. DVT prophylaxis: On Lovenox Discharge Planning Awaiting improvement in respiratory status Bipin Cameron DO Jul 01, 2017 11:42
[2017-07-01] MEDS: INSULIN DETEMIR 100 UNITS/ML VIAL SQ SCH (13:51)
--- NOTE | 2017-07-01 14:34 | RADRPT ---
EXAM DATE/TIME: 07/01/2017 14:08 [facility] COMPARISON: CHEST SINGLE AP, June 27, 2017, 15:37. INDICATIONS : Shortness of breath. MEDICAL HISTORY : Asthma. SURGICAL HISTORY : Cholecystectomy. Tonsillectomy. ENCOUNTER: Subsequent ACUITY: 1 week PAIN SCORE: 4/10 LOCATION: Bilateral chest FINDINGS: Minimal bibasilar parenchymal changes are evident worse in the right than the left without significan t hyperinflation. The cardiac silhouette is mildly prominent without overt congestive failure.. . Osseous structures are intact. CONCLUSION: Completed cardiomegaly with minimal new parenchymal changes right base. Joe Cowan MD FACR on July 01, 2017 at 14:32 Board Certified Radiologist. This report was verified electronically.
[2017-07-02] VITALS (10 sets, daily range): BP systolic 116–153; BP diastolic 56–75; PULSE 55–74; RESP 18–20; TEMP 97.1–98.6; O2SAT 93–98
[2017-07-02] MEDS: INSULIN ASPART SUPPLEMENTAL SCALE SQ SCH ×3 (06:25→21:11)
[2017-07-02] MEDS: RESP: ALBUTEROL 2.5 MG/IPRATROPIUM 0.5 MG NEB (SCH) NEB ×3 (07:21→19:35)
--- NOTE | 2017-07-02 09:18 | HHI.PR ---
Subjective Remarks The patient says she has some aches but no real pains. She said she had some labored breathing and received some breathing treatments which helped. She says overall she feels better than yesterday. She says she is urinating less when she does at home. She would like to walk more. Her bowel movements have become more regular. Discussed with nursing. Objective Vitals Vital Signs Date Time Temp Pulse Resp B/P (MAP) Pulse Ox O2 Delivery O2 Flow Rate FiO2 07/02/17 08:04 97.1 55 19 116/56 (76) 93 07/02/17 07:22 98 07/02/17 04:00 Nasal Cannula 2.00 07/02/17 04:00 98.0 72 20 143/68 (93) 93 07/02/17 04:00 98.0 72 20 143/68 (93) 93 07/02/17 00:00 98.6 62 18 153/63 (93) 95 07/02/17 00:00 Nasal Cannula 2.00 07/01/17 21:30 Nasal Cannula 2.00 07/01/17 20:28 96 Nasal Cannula 2.00 07/01/17 19:55 71 07/01/17 16:00 98.4 60 19 152/72 (98) 98 07/01/17 12:00 98.1 75 19 128/64 (85) 93 I/O 07/01/17 07/01/17 07/01/17 07/02/17 07/02/17 07/02/17 06:59 14:59 22:59 06:59 14:59 22:59 Intake Total 1267 ml 677 ml 720 ml 600 ml Output Total 500 ml 600 ml Balance 767 ml 677 ml 720 ml 0 ml Intake Oral 580 ml 720 ml 600 ml IV Total 687 ml 677 ml Output Urine Total 500 ml 600 ml # Voids 1 4 # Bowel Movements 1 1 Result Diagram: 06/28/1722606/28/17226 Imaging Last Impressions Chest X-Ray 07/01/17 0000 Signed Impressions: Service Date/Time: Saturday, July 01, 2017 14:08 - CONCLUSION: Completed cardiomegaly with minimal new parenchymal changes right base. Joe Cowan MD FACR Neck CT 06/29/17 0000 Signed Impressions: Service Date/Time: May 17:47 - CONCLUSION: Negative examination. Brown Ruth MD CT Angiography 06/28/17 0000 Signed Impressions: Service Date/Time: May 17:40 - CONCLUSION: No PE. Brown Ruth MD Objective Remarks GENERAL: Morbidly obese female, sitting up in bed. HEENT: NC, AT. CARDIOVASCULAR: Normal rate and regular rhythm without murmurs, gallops, or rubs. RESPIRATORY: Decreased air movement in bilateral lung higuera. No obvious wheezing. GASTROINTESTINAL: Abdomen soft, non-tender, non-distended. Normal active bowel sounds MUSCULOSKELETAL: Extremities without cyanosis, trace edema. NEURO: Alert & Oriented x4 to person, place, time, situation. Moves all ext x4 PSYCH: Appropriate mood and affect. Medications and IVs Current Medications Medications (Trade) Dose Ordered Sig/[place] Route Start Time Stop Time Status Last Admin (D50w (Vial) Inj) 50 ml UNSCH PRN IV 06/27/17 17:00 (Glucagon Inj) 1 mg UNSCH PRN OTHER 06/27/17 17:00 (NovoLOG SUPPLEMENTAL SCALE) 1 ACHS SLIDING SCALE SQ 06/27/17 21:00 07/02/17 06:25 (NS Flush) 2 ml UNSCH PRN IV FLUSH 06/27/17 17:00 (NS Flush) 2 ml BID IV FLUSH 06/27/17 21:00 07/01/17 21:32 (Tylenol) 650 mg Q4H PRN PO 06/27/17 17:00 (Zofran Inj) 4 mg Q6H PRN IVP 06/27/17 17:00 (Compazine Supp) 25 mg Q12H PRN RECTAL 06/27/17 17:00 (Tylenol) 650 mg Q6H PRN PO 06/27/17 17:00 (Percocet 5-325 Mg) 1 tab Q6H PRN PO 06/27/17 17:00 (Percocet 10-325 Mg) 1 tab Q6H PRN PO 06/27/17 17:00 (Morphine Inj) 2 mg Q3H PRN IV 06/27/17 17:00 (Morphine Inj) 4 mg Q3H PRN IV 06/27/17 17:00 (Narcan Inj) 0.4 mg UNSCH PRN IV 06/27/17 17:00 (Katelynn-Colace) 1 tab BID PO 06/27/17 21:00 07/01/17 21:21 (Milk Of Magnesia Liq) 30 ml Q12H PRN PO 06/27/17 17:00 (Senokot) 17.2 mg Q12H PRN PO 06/27/17 17:00 (Dulcolax Supp) 10 mg DAILY PRN RECTAL 06/27/17 17:00 (Lactulose Liq) 30 ml DAILY PRN PO 06/27/17 17:00 (Nitrostat Sl) 0.4 mg Q5M PRN SL 06/27/17 17:00 (Protonix) 40 mg DAILY PO 06/27/17 17:00 07/01/17 08:32 (Xanax) 0.25 mg TID PRN PO 06/27/17 17:00 06/27/17 20:31 (Duoneb Neb) 1 ampule Q4HR NEB PRN NEB 06/27/17 17:30 (Mucinex Er) 600 mg BID PO 06/27/17 21:00 07/01/17 21:21 (Flexeril) 10 mg TID PRN PO 06/27/17 17:45 (Flonase Azael Spr) 2 spray DAILY EACH NARE 06/28/17 10:00 07/01/17 08:35 (Cardizem Cd) 240 mg DAILY PO 06/28/17 10:30 07/01/17 08:32 (Lovenox Inj) 40 mg DAILY SQ 06/30/17 09:00 07/01/17 08:33 (Duoneb Neb) 1 ampule TID NEB NEB 06/29/17 14:00 07/02/17 07:21 (Symbicort 80-4.5 Mcg Inh) 1 puff Q12HR INH 06/30/17 09:00 07/01/17 21:30 (Ecotrin Ec) 81 mg DAILY PO 07/01/17 09:00 07/01/17 08:33 (Deltasone) 40 mg DAILY PO 07/02/17 09:00 (Levemir Inj) 15 units DAILY SQ 07/01/17 12:00 07/01/17 13:51 A/P Assessment and Plan 61-year-old female with a reported history of asthma, JORDAN who presented for shortness of breath and chest tightness. Acute respiratory failure Patient reports it all started with a "head cold and some chest congestion with cough". I suspect the patient might have had a URI. Most likely she has underlying obesity related COPD/possible asthma. Discussed with cardiology. Brief episode of A. fib is likely related to worsening respiratory status. So far cardiac workup is unremarkable for ACS. Agree with cardiology to defer further ischemic workup at this time. Chest x-ray, CTA, neck CT all unremarkable. Repeat chest x-ray with mild parenchymal changes on the right base. - Pulmonology following. PFTs has been ordered. ABG unremarkable but it was done on 3 L nasal cannula. - Plan to wean the patient off oxygen as tolerated. Respiratory walk test requested. - Transition to oral prednisone. Wean to 40 mg daily. - follow up with pulmonary. - Start doxycycline IV. - Scheduled and as needed nebulizers. New onset A. fib with RVR Initial EKG showed rapid atrial fibrillation versus sinus tachycardia, rate 149. Heart rate spontaneously converted to NSR and she remained in sinus. TSH and electrolytes within normal limits. - Cardiology followed and recommended to continue Cardizem and aspirin. Currently well-controlled 07/02/17. Elevated troponin Troponin 0.03, 0.15, 0.09, 0.03. Patient presented with shortness breath and chest tightness. Suspect demand ischemia from rapid A. fib . Initial EKG showed ST depressions in V3-5. - See above, per cardiology, continue aspirin and Cardizem. Patient is not a candidate for stress test or heart catheterization at this time given her respiratory status. Prediabetes A1c 6.4%. Blood glucose likely elevated secondary to steroids. - Monitor Accu-Cheks and sliding scale coverage - Diabetic education and dietitian consult - Plan to start on metformin at discharge - wean steroids. - Levemir 15 units daily. Adjust as needed. DVT prophylaxis: On Lovenox Discharge Planning Awaiting improvement in respiratory status. Anticipate discharge home in 1-2 days. Bipin Cameron DO Jul 02, 2017 09:17
[2017-07-02] MEDS: DILTIAZEM-CD 240 MG CAP ER PO SCH (10:01)
[2017-07-02] MEDS: guaiFENesin E.R. 600 MG TAB PO SCH ×2 (10:02→21:03)
[2017-07-02] MEDS: ASPIRIN EC 81 MG TABEC PO SCH (10:02)
[2017-07-02] MEDS: PANTOPRAZOLE SOD 40 MG DELAYED RELEASE TAB PO SCH (10:02)
[2017-07-02] MEDS: DOCUSATE SODIUM 50 MG/SENNA 8.6 MG TAB PO SCH ×2 (10:02→21:04)
[2017-07-02] MEDS: predniSONE 20 MG TAB PO SCH (10:02)
[2017-07-02] MEDS: ENOXAPARIN SODIUM 40 MG/0.4 ML SYRINGE SQ SCH (10:03)
[2017-07-02] MEDS: SODIUM CHLORIDE 0.9% FLUSH 10 ML FLUSH IV FLUSH SCH ×2 (10:03→21:15)
[2017-07-02] MEDS: BUDESONIDE-FORMOTEROL 80/4.5 MCG INHALER INH SCH ×2 (10:06→21:05)
[2017-07-02] MEDS: FLUTICASONE PROPIONATE 50 MCG/ACT 16 GM NASAL SPRAY EACH NARE SCH (10:06)
[2017-07-02] MEDS: INSULIN DETEMIR 100 UNITS/ML VIAL SQ SCH (10:10)
[2017-07-02] MEDS: DOXYCYCLINE INJ 100 MG in SODIUM CHLORIDE 0.9% INJ 100 ML IV SCH ×2 (10:33→21:04)
[2017-07-02 20:07] LABS: BICARBONATE 26.7 MEQ/L (21.0-32.0); POTASSIUM 4.4 MEQ/L (3.5-5.1)
[2017-07-03] VITALS (10 sets, daily range): BP systolic 112–159; BP diastolic 57–70; PULSE 57–68; RESP 18–20; TEMP 98.1–98.7; O2SAT 94–98
[2017-07-03] MEDS: INSULIN ASPART SUPPLEMENTAL SCALE SQ SCH ×4 (06:08→21:06)
[2017-07-03] MEDS: RESP: ALBUTEROL 2.5 MG/IPRATROPIUM 0.5 MG NEB (SCH) NEB ×2 (07:32→13:43)
[2017-07-03] MEDS: INSULIN DETEMIR 100 UNITS/ML VIAL SQ SCH (08:48)
[2017-07-03] MEDS: SODIUM CHLORIDE 0.9% FLUSH 10 ML FLUSH IV FLUSH SCH ×2 (08:49→20:58)
[2017-07-03] MEDS: FLUTICASONE PROPIONATE 50 MCG/ACT 16 GM NASAL SPRAY EACH NARE SCH (08:49)
[2017-07-03] MEDS: BUDESONIDE-FORMOTEROL 80/4.5 MCG INHALER INH SCH ×2 (08:49→20:58)
[2017-07-03] MEDS: ENOXAPARIN SODIUM 40 MG/0.4 ML SYRINGE SQ SCH (08:50)
[2017-07-03] MEDS: PANTOPRAZOLE SOD 40 MG DELAYED RELEASE TAB PO SCH (08:50)
[2017-07-03] MEDS: predniSONE 20 MG TAB PO SCH (08:50)
[2017-07-03] MEDS: guaiFENesin E.R. 600 MG TAB PO SCH ×2 (08:51→20:58)
[2017-07-03] MEDS: ASPIRIN EC 81 MG TABEC PO SCH (08:51)
[2017-07-03] MEDS: DILTIAZEM-CD 240 MG CAP ER PO SCH (08:51)
[2017-07-03] MEDS: DOCUSATE SODIUM 50 MG/SENNA 8.6 MG TAB PO SCH ×2 (08:52→20:58)
[2017-07-03] MEDS: DOXYCYCLINE INJ 100 MG in SODIUM CHLORIDE 0.9% INJ 100 ML IV SCH ×2 (10:20→21:07)
[2017-07-03] MEDS ORDERED: INSULIN DETEMIR 100 UNITS/ML VIAL SQ ONE (14:00)
--- NOTE | 2017-07-03 14:03 | HHI.PR ---
Subjective Remarks The patient said that she was feeling better. She said she walked with the respiratory therapist and her saturation did not drop below 91%. She was very concerned about her diagnosis of diabetes and atrial fibrillation. She said she has no insurance and is unsure if she will be able to follow-up. She is nervous about going home. Discussed with nursing. Objective Vitals Vital Signs Date Time Temp Pulse Resp B/P (MAP) Pulse Ox O2 Delivery O2 Flow Rate FiO2 07/03/17 13:47 98 07/03/17 12:00 98.7 65 18 128/57 (80) 95 07/03/17 08:00 98.1 61 18 138/65 (89) 95 07/03/17 07:35 95 07/03/17 04:00 98.5 57 20 112/70 (84) 94 07/03/17 04:00 Room Air 07/03/17 00:00 Room Air 07/03/17 00:00 98.7 65 20 159/70 (99) 94 07/02/17 21:15 Room Air 07/02/17 20:01 62 07/02/17 20:00 98.2 66 20 145/68 (93) 96 07/02/17 17:53 96 21 07/02/17 16:30 98.2 67 20 146/75 (98) 95 I/O 07/02/17 07/02/17 07/02/17 07/03/17 07/03/17 07/03/17 06:59 14:59 22:59 06:59 14:59 22:59 Intake Total 600 ml 100 ml 820 ml 240 ml Output Total 600 ml Balance 0 ml 100 ml 820 ml 240 ml Intake Oral 600 ml 720 ml 240 ml IV Total 100 ml 100 ml Output Urine Total 600 ml # Voids 3 2 # Bowel Movements 1 1 Result Diagram: 07/02/173 Imaging Last Impressions Chest X-Ray 07/01/17 0000 Signed Impressions: Service Date/Time: Saturday, July 01, 2017 14:08 - CONCLUSION: Completed cardiomegaly with minimal new parenchymal changes right base. Joe Cowan MD FACR Neck CT 06/29/17 0000 Signed Impressions: Service Date/Time: May 17:47 - CONCLUSION: Negative examination. Brown Ruth MD CT Angiography 06/28/17 0000 Signed Impressions: Service Date/Time: May 17:40 - CONCLUSION: No PE. Brown Ruth MD Objective Remarks GENERAL: Morbidly obese female, sitting up in bed. HEENT: NC, AT. CARDIOVASCULAR: Normal rate and regular rhythm without murmurs, gallops, or rubs. RESPIRATORY: CTAB. No obvious wheezing. GASTROINTESTINAL: Abdomen soft, non-tender, non-distended. Normal active bowel sounds MUSCULOSKELETAL: Extremities without cyanosis or edema. NEURO: Alert & Oriented x4 to person, place, time, situation. Moves all ext x4 PSYCH: Teary eyed at times. Medications and IVs Current Medications Medications (Trade) Dose Ordered Sig/[place] Route Start Time Stop Time Status Last Admin (D50w (Vial) Inj) 50 ml UNSCH PRN IV 06/27/17 17:00 (Glucagon Inj) 1 mg UNSCH PRN OTHER 06/27/17 17:00 (NovoLOG SUPPLEMENTAL SCALE) 1 ACHS SLIDING SCALE SQ 06/27/17 21:00 07/03/17 11:36 (NS Flush) 2 ml UNSCH PRN IV FLUSH 06/27/17 17:00 07/03/17 10:21 (NS Flush) 2 ml BID IV FLUSH 06/27/17 21:00 07/03/17 08:49 (Tylenol) 650 mg Q4H PRN PO 06/27/17 17:00 (Zofran Inj) 4 mg Q6H PRN IVP 06/27/17 17:00 (Compazine Supp) 25 mg Q12H PRN RECTAL 06/27/17 17:00 (Tylenol) 650 mg Q6H PRN PO 06/27/17 17:00 (Percocet 5-325 Mg) 1 tab Q6H PRN PO 06/27/17 17:00 (Percocet 10-325 Mg) 1 tab Q6H PRN PO 06/27/17 17:00 (Morphine Inj) 2 mg Q3H PRN IV 06/27/17 17:00 (Morphine Inj) 4 mg Q3H PRN IV 06/27/17 17:00 (Narcan Inj) 0.4 mg UNSCH PRN IV 06/27/17 17:00 (Katelynn-Colace) 1 tab BID PO 06/27/17 21:00 07/02/17 21:04 (Milk Of Magnesia Liq) 30 ml Q12H PRN PO 06/27/17 17:00 (Senokot) 17.2 mg Q12H PRN PO 06/27/17 17:00 (Dulcolax Supp) 10 mg DAILY PRN RECTAL 06/27/17 17:00 (Lactulose Liq) 30 ml DAILY PRN PO 06/27/17 17:00 (Nitrostat Sl) 0.4 mg Q5M PRN SL 06/27/17 17:00 (Protonix) 40 mg DAILY PO 06/27/17 17:00 07/03/17 08:50 (Xanax) 0.25 mg TID PRN PO 06/27/17 17:00 06/27/17 20:31 (Duoneb Neb) 1 ampule Q4HR NEB PRN NEB 06/27/17 17:30 (Mucinex Er) 600 mg BID PO 06/27/17 21:00 07/03/17 08:51 (Flexeril) 10 mg TID PRN PO 06/27/17 17:45 (Flonase Azael Spr) 2 spray DAILY EACH NARE 06/28/17 10:00 07/03/17 08:49 (Cardizem Cd) 240 mg DAILY PO 06/28/17 10:30 07/03/17 08:51 (Lovenox Inj) 40 mg DAILY SQ 06/30/17 09:00 07/03/17 08:50 (Duoneb Neb) 1 ampule TID NEB NEB 06/29/17 14:00 07/03/17 13:43 (Symbicort 80-4.5 Mcg Inh) 1 puff Q12HR INH 06/30/17 09:00 07/03/17 08:49 (Ecotrin Ec) 81 mg DAILY PO 07/01/17 09:00 07/03/17 08:51 (Deltasone) 40 mg DAILY PO 07/02/17 09:00 07/03/17 08:50 (Levemir Inj) 15 units DAILY SQ 07/01/17 12:00 07/03/17 08:48 Doxycycline Hyclate 100 mg/ Sodium Chloride 100 ml @ 100 mls/hr Q12H IV 07/02/17 10:00 07/03/17 10:20 A/P Assessment and Plan 61-year-old female with a reported history of asthma, JORDAN who presented for shortness of breath and chest tightness. Acute respiratory failure Patient reports it all started with a "head cold and some chest congestion with cough". I suspect the patient might have had a URI. Most likely she has underlying obesity related COPD/possible asthma. Discussed with cardiology. Brief episode of A. fib is likely related to worsening respiratory status. So far cardiac workup is unremarkable for ACS. Agree with cardiology to defer further ischemic workup at this time. Chest x-ray, CTA, neck CT all unremarkable. Repeat chest x-ray with mild parenchymal changes on the right base. Pulmonology following. PFTs have been ordered. ABG unremarkable but it was done on 3 L nasal cannula. - Plan to wean the patient off oxygen as tolerated. Respiratory walk test requested. - Transition to oral prednisone. Wean to 40 mg daily. Continue taper. - follow up with pulmonary as an outpt. - Start doxycycline IV. Will complete course PO upon discharge. - Scheduled and as needed nebulizers. New onset A. fib with RVR Initial EKG showed rapid atrial fibrillation versus sinus tachycardia, rate 149. Heart rate spontaneously converted to NSR and she remained in sinus. TSH and electrolytes within normal limits. - Cardiology followed and recommended to continue Cardizem and aspirin. Currently well-controlled 07/03/17. Elevated troponin Troponin 0.03, 0.15, 0.09, 0.03. Patient presented with shortness breath and chest tightness. Suspect demand ischemia from rapid A. fib . Initial EKG showed ST depressions in V3-5. - See above, per cardiology, continue aspirin and Cardizem. Follow-up as an outpt. Prediabetes A1c 6.4%. Blood glucose likely elevated secondary to steroids. - Monitor Accu-Cheks and sliding scale coverage - Diabetic education and dietitian consult - Plan to start on metformin at discharge - wean steroids. - Levemir increased to 20 units daily. Adjust as needed. DVT prophylaxis: On Lovenox Discharge Planning Anticipate d/c home in the AM. Bipin Cameron DO Jul 03, 2017 14:03
[2017-07-04] VITALS: BP 150/77; PULSE 54; RESP 20; TEMP 98.5; O2SAT 97
[2017-07-04 04:00] VITALS: BP 128/60; PULSE 63; RESP 18; TEMP 98.3; O2SAT 94
[2017-07-04] MEDS: INSULIN ASPART SUPPLEMENTAL SCALE SQ SCH ×2 (06:34→13:00)
[2017-07-04 08:00] VITALS: BP 159/67; PULSE 56; PULSE 63; RESP 18; TEMP 98.7; O2SAT 93
[2017-07-04] MEDS: ENOXAPARIN SODIUM 40 MG/0.4 ML SYRINGE SQ SCH (08:20)
[2017-07-04] MEDS: DOCUSATE SODIUM 50 MG/SENNA 8.6 MG TAB PO SCH (08:21)
[2017-07-04] MEDS: predniSONE 20 MG TAB PO SCH (08:21)
[2017-07-04] MEDS: DOXYCYCLINE INJ 100 MG in SODIUM CHLORIDE 0.9% INJ 100 ML IV SCH (08:21)
[2017-07-04] MEDS: PANTOPRAZOLE SOD 40 MG DELAYED RELEASE TAB PO SCH (08:21)
[2017-07-04] MEDS: guaiFENesin E.R. 600 MG TAB PO SCH (08:21)
[2017-07-04] MEDS: ASPIRIN EC 81 MG TABEC PO SCH (08:21)
[2017-07-04] MEDS: DILTIAZEM-CD 240 MG CAP ER PO SCH (08:21)
[2017-07-04] MEDS: SODIUM CHLORIDE 0.9% FLUSH 10 ML FLUSH IV FLUSH SCH (08:22)
[2017-07-04] MEDS: FLUTICASONE PROPIONATE 50 MCG/ACT 16 GM NASAL SPRAY EACH NARE SCH (08:23)
[2017-07-04] MEDS: BUDESONIDE-FORMOTEROL 80/4.5 MCG INHALER INH SCH (08:23)
[2017-07-04] MEDS ORDERED: INSULIN DETEMIR 100 UNITS/ML VIAL SQ SCH (09:00)
--- NOTE | 2017-07-04 09:17 | RSPPFT ---
DATE OF PROCEDURE: 06/28/17 COMMENTS: VOLUMES DYNAMIC: FVC and FEV1 severely reduced. FLOWS: FEV1% normal; FEF 25-75 severely reduced. IMPRESSION: Severe reduction in dynamic lung volumes with terminal airflow obstruction and no improvement post-bronchodilator. Given the extreme weight this may be a restrictive defect related to obesity but full lung volumes would be necessary for further evaluation.
[2017-07-04] MEDS ORDERED: PRED20 PO (09:22)
[2017-07-04] MEDS ORDERED: SYMB80AE INH (09:22)
[2017-07-04] MEDS ORDERED: ASPI-99 PO (09:22)
[2017-07-04] MEDS ORDERED: METF500T PO (09:22)
[2017-07-04] MEDS ORDERED: DOXY100C PO (09:22)
[2017-07-04] MEDS ORDERED: ALBUAER3 INH (09:22)
[2017-07-04] MEDS ORDERED: CARD240C6 PO (09:22)
--- NOTE | 2017-07-04 09:25 | HHI.DCPOC ---
Discharge Care Plan Diagnosis: (1) COPD (chronic obstructive pulmonary disease) (2) Morbid obesity with BMI of 45.0-49.9, adult (3) Troponin level elevated (4) Paroxysmal atrial fibrillation (5) Shortness of breath Goals to Promote Your Health * To prevent worsening of your condition and complications * To maintain your health at the optimal level Directions to Meet Your Goals Take your medications as prescribed Follow your dietary instruction Follow activity as directed Keep your appointments as scheduled Take your immunizations and boosters as scheduled If your symptoms worsen call your PCP, if no PCP go to Urgent Care Center or Emergency Room Smoking is Dangerous to Your Health. Avoid second hand smoke Call the 24-hour hour crisis hotline for domestic abuse at Bipin Cameron DO Jul 04, 2017 09:25
[2017-07-04] MEDS ORDERED: BLOO-54 (09:27)
--- NOTE | 2017-07-04 09:33 | HHI.DS ---
Discharge Summary Admission Date Jun 28, 2017 at 08:52 Discharge Date: Jul 04, 2017 Admitting Diagnosis chest pain, dyspnea, AF (1) Diabetes mellitus ICD Code: E11.9 - Type 2 diabetes mellitus without complications (2) COPD (chronic obstructive pulmonary disease) ICD Code: J44.9 - Chronic obstructive pulmonary disease, unspecified (3) Morbid obesity with BMI of 45.0-49.9, adult ICD Code: E66.01 - Morbid (severe) obesity due to excess calories; Z68.42 - Body mass index (BMI) 45.0-49.9, adult Status: Acute (4) Troponin level elevated ICD Code: R74.8 - Abnormal levels of other serum enzymes (5) Paroxysmal atrial fibrillation ICD Code: I48.0 - Paroxysmal atrial fibrillation (6) Shortness of breath ICD Code: R06.02 - Shortness of breath; Z68.42 - Body mass index (BMI) 45.0- 49.9, adult Diagnosis: Principal Status: Acute Procedures None Brief History - From Admission The patient came in through the emergency department with initial complaint of respiratory symptoms. The patient is a 61-year-old morbidly obese female who presented to the emergency room by [facility] with increasing shortness of breath, has had cough, congestion and shortness of breath for about five days. Her shortness of breath has become worse. Over the less two days, she is having dyspnea on exertion and subsequently called today and was brought to the hospital. They treated her with albuterol en route. She has had dyspnea and gas had pressure-like sensation in her chest and chest pain. CBC/BMP: 07/02/17 1943 Significant Findings Laboratory Tests Test 07/02/17 19:43 Blood Urea Nitrogen 21 MG/DL (7-18) Random Glucose 301 MG/DL (74-106) Calcium Level 8.2 MG/DL (8.5-10.1) Sodium Level 135 MEQ/L (136-145) Estimat Glomerular Filtration Rate 58 ML/MIN (>89) Imaging Last Impressions Chest X-Ray 07/01/17 0000 Signed Impressions: Service Date/Time: Saturday, July 01, 2017 14:08 - CONCLUSION: Completed cardiomegaly with minimal new parenchymal changes right base. Joe Cowan MD FACR Neck CT 06/29/17 0000 Signed Impressions: Service Date/Time: May 17:47 - CONCLUSION: Negative examination. Brown Ruth MD CT Angiography 06/28/17 0000 Signed Impressions: Service Date/Time: , June 29, 2017 17:40 - CONCLUSION: No PE. Brown Ruth MD PE at Discharge GENERAL: Morbidly obese female, sitting up in bed. HEENT: NC, AT. CARDIOVASCULAR: Normal rate and regular rhythm without murmurs, gallops, or rubs. RESPIRATORY: CTAB. No obvious wheezing. GASTROINTESTINAL: Abdomen soft, non-tender, non-distended. Normal active bowel sounds MUSCULOSKELETAL: Extremities without cyanosis or edema. NEURO: Alert & Oriented x4 to person, place, time, situation. Moves all ext x4 PSYCH: Teary eyed at times. Pt update on day of discharge The patient was nervous about going home. She overall felt better. She wanted to talk further about diabetic education. Discussed with nursing. Hospital Course Acute respiratory failure Patient reports it all started with a "head cold and some chest congestion with cough". Chest x-ray, CTA, neck CT all unremarkable. Repeat chest x-ray with mild parenchymal changes on the right base. IV doxycycline was started. Pulmonology was consulted. PFTs have been ordered. ABG done on 3 L nasal cannula was unremarkable. IV Solumedrol was weaned to prednisone. She received standing and as needed nebs. Respiratory walk test was performed and the pt will not need home oxygen. She will follow up with pulmonary as an outpt. She will complete a course of PO doxycycline upon discharge. She will continue albuterol and Symbicort. She will follow up with pulmonology. New onset A. fib with RVR Initial EKG showed rapid atrial fibrillation versus sinus tachycardia, rate 149. Heart rate spontaneously converted to NSR and she remained in sinus. TSH and electrolytes within normal limits. Cardiology was consulted and recommended to continue Cardizem and aspirin. She will follow up with cardiology as an outpt. Elevated troponin Troponin 0.03, 0.15, 0.09, 0.03. Patient presented with shortness breath and chest tightness. Initial EKG showed ST depressions in V3-5. Per cardiology, continue aspirin and Cardizem. Ischemic work-up was deferred by cardiology and the pt will follow-up with cardiology as an outpt. Her symptoms have resolved. Prediabetes A1c 6.4%. Blood glucose elevated secondary to steroids. We monitored Accu-Cheks and provided sliding scale coverage. She also was started on Levemir daily. Diabetic education and dietitian consult were provided. Will start metformin at discharge. Will continue to wean steroids. Pt Condition on Discharge: Stable Discharge Disposition: Discharge Home Discharge Time: > 30 minutes Discharge Instructions DIET: Follow Instructions for: Diabetic Diet Activities you can perform: Weight Bearing as Phyllis Follow up Referrals: Cardiology - 2 Weeks with Sukhdeep Hastings MD PCP Follow-up - [address] Stearns Pulmonology - 1 Week with Jadyn Ledesma MD New Medications: Blood-Glucose Meter (Blood Glucose Monitor) 1 Each Kit KIT for Blood Sugar Management, #1 Doxycycline Hyclate (Doxycycline Hyclate) 100 Mg Cap 100 MG PO BID for Infection for 5 Days, CAP 0 Refills Fluticasone 12 GM Inh (Flovent Hfa 12 GM Inh) 110 Mcg/Act Inh 1 PUFF INH BID for Asthma Management, #1 INHALER 0 Refills Metformin (Metformin) 500 Mg Tab 500 MG PO BIDPC for Blood Sugar Management, #60 TAB 0 Refills With meals Aspirin DR (Adult Aspirin EC Low Strength) 81 Mg Tabec 81 MG PO DAILY for A fib for 30 Days, TAB Diltiazem CD 24 HR (Cardizem CD 24 HR) 240 Mg Caper 240 MG PO DAILY for Blood Pressure Management, #30 CAP Prednisone (Prednisone) 20 Mg Tab 20 MG PO DAILY for Broncospasm, #4 TAB Continued Medications: Albuterol 8.5 GM Inh (Proair Hfa 8.5 GM Inh) 90 Mcg/Act Aer 2 PUFF INH Q6H PRN for SHORTNESS OF BREATH, #1 INHALER 0 Refills (This prescription has been renewed) 108 mcg/actuation Cyclobenzaprine (Flexeril) 10 Mg Tab 10 MG PO TID PRN for PAIN SCALE 1 TO 10, #90 TAB 0 Refills Ibuprofen (Ibuprofen) 800 Mg Tab 800 MG PO Q8H PRN for PAIN SCALE 1 TO 5, TAB 0 Refills Bipin Cameron DO Jul 04, 2017 09:33
[2017-07-04] MEDS ORDERED: FLUTI110I INH (10:14)
--- NOTE | 2017-07-04 10:59 | MD ---
cc: Jadyn STARKS ADMISSION DATE: 06/28/2017 DISCHARGE DATE: [facility] Visit Search.Discharge Date BRIEF HISTORY Ms. Vega is a 61-year-old white female who presented for the second time to the emergency room on June 28 with dyspnea. She was in atrial fibrillation with RVR. That was a new finding and Dr. Hastings was consulted and evaluated for cardiac status. In light of the persistent dyspnea, I was asked to see her from a pulmonary standpoint. She really had no symptoms to suggest infection. She had moderate chronic dyspnea which seemed to be worse, possibly exacerbated by the atrial fib with RVR. Echocardiogram revealed normal ejection fraction with no significant pulmonary hypertension. Arterial blood gases were performed on 3 liters; her pO2 was 113 with a pH of 7.4 and a pCO2 of 36. CTA was performed due to obesity, progressive dyspnea and risk of thromboembolic disease but there was no evidence of thromboembolism and actually the lung higuera were clear. She also had a CT of her neck because she seemed to be complaining of neck discomfort and what sounded like stridor but that was also normal. The patient is quite obese which is undoubtedly is a contributing factor to her dyspnea and, although it would not cause dyspnea during the day, she may have sleep apnea and that should be evaluated as an outpatient. It could have been a contributing factor to the atrial fibrillation as well. I spoke to her hospitalist today. They are trying to plan discharge. I do not think any further inpatient pulmonary evaluation is needed but she will need outpatient followup including a sleep study and in light of the atrial fibrillation, possibly cardiology followup as well. Case Management has seen the patient. Unfortunately she has no insurance and has not had consistent health care for the last couple of years because of this. I should also mention that pulmonary simple spirometry was performed while in the hospital and she has significant restriction and in light of the normal CT scan I suspect that must be related primarily to her obesity. MD BABITA Parada/RUSLAN /4:46 PM /10:48 AM
[2017-07-04 12:00] VITALS: BP 140/63; PULSE 70; RESP 18; TEMP 99; O2SAT 100
[2017-07-04 13:03] VITALS: O2SAT 94
[2017-07-20] MEDS ORDERED: STOO100C PO (11:24)
[2017-07-20] MEDS ORDERED: ALBUAER3 INH (11:33)
[2017-07-20] MEDS ORDERED: METF500T PO (11:33)
[2017-07-20] MEDS ORDERED: CARD240C6 PO (11:33)
[2017-07-20] MEDS ORDERED: FLUTI110I INH (11:33)
== END 2017-07-04 15:11 | disposition home or self-care (01) ==
LOC: NEPC 14:43 → NEDA 16:58 → UNDOADMOB 16:59 → NEDA 16:59 → NEPFCDU 18:56 → NEDA 18:56 → OBSVTOIN 06-28 08:52 → INTOOBSV 06-28 08:52 → N04A 06-30 18:05 → NEPFCDU 06-30 18:05 → UNDODISOB 07-04 15:11
PROVIDERS: ADMIT Family Medicine; ATTEND Family Medicine
DX: R06.01 Orthopnea (principal); I48.0 Paroxysmal atrial fibrillation; I10 Essential (primary) hypertension; R74.8 Abnormal levels of other serum enzymes; E66.01 Morbid (severe) obesity due to excess calories; T38.0X5A Adverse effect of glucocorticoids and synthetic analogues, initial encounter; J44.1 Chronic obstructive pulmonary disease with (acute) exacerbation; J45.901 Unspecified asthma with (acute) exacerbation; Z79.4 Long term (current) use of insulin; Z68.42 Body mass index [BMI] 45.0-49.9, adult; Z23 Encounter for immunization
CPT/HCPCS: 36600; 70491; 71010; 71275; 76937; 80048; 80053; 80061; 82550; 82552; 82805; 82948; 83036; 83735; 83880; 84100; 84439; 84443; 84484; 85025; 85610; 85730; 90732; 93005; 93306; 94060; 94150; 94620; 94640; 94664; 96361; 96372; 96374; 96376; 97162; 99291; G0378; J1650; J1815; J2060; J2920; J2930; J7030; J7512; Q9967

== ENCOUNTER 2017-11-21 02:30 | Emergency (ER) | payer SELFPAY ==
[~2017-11-21] VITALS: Ht 157.5 cm; Wt 108.0 kg
[~2017-11-21 02:30] MED LIST changes: +ASPI1TAB56 PO; +BLOO-54; +CARD240C6 PO; +DOCU1CAP66 PO; +FLUTI110I INH; -IBUP800T23 PO; +METF500T PO
[2017-11-21 02:31] VITALS: BP 153/69; PULSE 78; RESP 20; TEMP 97.6; O2SAT 97
[2017-11-21 03:00] VITALS: BP 123/59; PULSE 64; RESP 20; O2SAT 98
--- NOTE | 2017-11-21 03:13 | PD ---
HPI Chief Complaint: Respiratory Distress Time Seen by Provider: 03:12 Travel History International Travel<30 days: No Contact w/Intl Traveler<30days: No Traveled to known affect area: No History of Present Illness HPI 62-year-old female came to the emergency room with history of difficulty breathing for past 2-3 days. She describes it mostly as congestion of her nose and some cough. She says that when she lays down the breathing gets worse. She does have history of sleep apnea but has not been able to use the machine since she does not have an insurance and can't afford it. No history of chest pain. Vital signs have been stable. Patient says that she gets very anxious when she gets a sensation that she cannot breathe. She does not have history of COPD as told to her by Dr. Ledesma during her previous admission. She said she has had sick contact at her work. [facility] Past Medical History Narrative Medical List of her past medical, surgical, social and family history is reviewed from the nursing note. 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 ) Fibromyalgia: Yes Gastrointestinal Disorders: Yes (PROCTITUS) Genitourinary: Yes (NOCTURIA) Hiatal Hernia: Yes Hypertension: No Immune Disorder: Yes (CHRONIC FATIGUE, FIBROMYALGEIA) Musculoskeletal: Yes (CHRONIC BACK PAIN ) Neurologic: No Psychiatric: Yes (PTSD) Reproductive: Yes (OVARIAN CYST) Respiratory: Yes (BRONCHITIS ) Immunizations Current: Yes Myocardial Infarction: No Pneumonia: Yes Sleep Apnea: Yes Thyroid Disease: No Tetanus Vaccination: Unknown ?: Not LMP: menapause Menopausal: Yes : 2 Para: 1 : 1 Past Surgical History Abdominal Surgery: Yes (HERNIA ) Section: Yes Cholecystectomy: Yes Coronary Artery Bypass Graft: No Genitourinary Surgery: Yes (CYSTOSCOPY) Gynecologic Surgery: Yes ( ) Hysterectomy: No Tonsillectomy: Yes Other Surgery: Yes (CARPEL TUNNEL, GALL BLADDER, ) Social History Alcohol Use: No Tobacco Use: No (QUIT LONG TIME AGO ) Substance Use: No (DENIES ) Allergies-Medications (Allergen,Severity, Reaction): Coded Allergies: codeine (Unverified Allergy, Severe, UNKNOWN, 07/20/17) oxycodone (Unverified Allergy, Severe, 07/20/17) naproxen (Unverified Allergy, Unknown, 07/20/17) Comments List of her allergies reviewed from the nursing note. Reported Meds & Prescriptions Reported Meds & Active Scripts Active Flovent Hfa 12 GM Inh (Fluticasone Propionate) 110 Mcg/Act Inh 1 Puff INH BID Metformin (Metformin HCl) 500 Mg Tab 500 Mg PO BIDPC With meals Cardizem CD 24 HR (Diltiazem CD 24 HR) 240 Mg Caper 240 Mg PO DAILY Proair Hfa 8.5 GM Inh (Albuterol Sulfate) 90 Mcg/Act Aer 2 Puff INH Q6H PRN 108 mcg/actuation Stool Softener (Docusate Sodium) 100 Mg Cap 1 Tab PO DAILY Blood Glucose Monitor (Blood-Glucose Meter) 1 Each Kit Kit Adult Aspirin EC Low Strength (Aspirin) 81 Mg Tabec 81 Mg PO DAILY 30 Days Narrative Medication List of her home medications reviewed from the nursing note. Review of Systems Except as stated in HPI: all other systems reviewed are Neg HENT: Positive: Congestion Respiratory: Positive: Cough, Shortness of Breath Physical Exam Narrative GENERAL: Awake, alert, obese, mild distress SKIN: Focused skin assessment warm/dry. HEAD: Atraumatic. Normocephalic. EYES: Pupils equal and round. No scleral icterus. No injection or drainage. ENT: No nasal bleeding or discharge. Mucous membranes pink and moist. NECK: Trachea midline. No JVD. CARDIOVASCULAR: Regular rate and rhythm. No murmur appreciated. RESPIRATORY: No accessory muscle use. Clear to auscultation. Breath sounds equal bilaterally. GASTROINTESTINAL: Abdomen soft, non-tender, nondistended. Hepatic and splenic margins not palpable. MUSCULOSKELETAL: No obvious deformities. No clubbing. No cyanosis. No edema. NEUROLOGICAL: Awake and alert. No obvious cranial nerve deficits. Motor grossly within normal limits. Normal speech. PSYCHIATRIC: Appropriate mood and affect; insight and judgment normal. Data Data Last Documented VS Vital Signs Date Time Temp Pulse Resp B/P (MAP) Pulse Ox O2 Delivery O2 Flow Rate FiO2 11/21/17 05:18 11/21/17 04:13 97 Room Air 11/21/17 04:13 75 16 11/21/17 03:32 21 11/21/17 02:31 97.6 Orders Orders Complete Blood Count With Diff (11/21/17 03:20) Basic Metabolic Panel (Bmp) (11/21/17 03:20) B-Type Natriuretic Peptide (11/21/17 03:20) Troponin I (11/21/17 03:20) Iv Access Insert/Monitor (11/21/17 03:20) Electrocardiogram (11/21/17 03:20) Ecg Monitoring (11/21/17 03:20) Oximetry (11/21/17 03:20) Oxygen Administration (11/21/17 03:20) Chest, Single Ap (11/21/17 03:20) Sodium Chloride 0.9% Flush (Ns Flush) (11/21/17 03:30) Albuterol Neb (Albuterol Neb) (11/21/17 03:30) Ed Discharge Order (11/21/17 04:30) Labs Laboratory Tests Test 11/21/17 03:40 White Blood Count 7.0 TH/MM3 Red Blood Count 4.11 MIL/MM3 Hemoglobin 12.0 GM/DL Hematocrit 36.6 % Mean Corpuscular Volume 89.1 FL Mean Corpuscular Hemoglobin 29.2 PG Mean Corpuscular Hemoglobin Concent 32.8 % Red Cell Distribution Width 15.0 % Platelet Count 229 TH/MM3 Mean Platelet Volume 6.4 FL Neutrophils (%) (Auto) 57.3 % Lymphocytes (%) (Auto) 31.4 % Monocytes (%) (Auto) 6.9 % Eosinophils (%) (Auto) 3.8 % Basophils (%) (Auto) 0.6 % Neutrophils # (Auto) 4.0 TH/MM3 Lymphocytes # (Auto) 2.2 TH/MM3 Monocytes # (Auto) 0.5 TH/MM3 Eosinophils # (Auto) 0.3 TH/MM3 Basophils # (Auto) 0.0 TH/MM3 CBC Comment DIFF FINAL Differential Comment Blood Urea Nitrogen 14 MG/DL Creatinine 0.68 MG/DL Random Glucose 135 MG/DL Calcium Level 8.4 MG/DL Sodium Level 141 MEQ/L Potassium Level 3.9 MEQ/L Chloride Level 107 MEQ/L Carbon Dioxide Level 29.3 MEQ/L Anion Gap 5 MEQ/L Estimat Glomerular Filtration Rate 87 ML/MIN Troponin I LESS THAN 0.02 NG/ML B-Type Natriuretic Peptide 25 PG/ML MDM Medical Decision Making Medical Screen Exam Complete: Yes Emergency Medical Condition: Yes Medical Record Reviewed: Yes Interpretation(s) Twelve-lead EKG was reviewed by me. Normal sinus rhythm, normal axis, nonspecific ST-T wave changes. Heart rate of 65 bpm. Differential Diagnosis Pneumonia, bronchitis, URI Narrative Course 4:28 AM chest x-ray was within normal limits. Awaiting for the blood test result. Patient was given a breathing treatment. The test results are normal and I will discharge her home. Procedures EKG Prior to Arrival: No Diagnosis Primary Impression: URI (upper respiratory infection) Qualified Codes: J06.9 - Acute upper respiratory infection, unspecified Additional Impression: Viral illness Referrals: Primary Care Physician Additional Instructions: Use humidifier during sleeping. Follow-up with your primary care if symptoms do not improve in another day or 2. Med/Other Pt SpecificInfo: No Change to Meds Disposition: 01 DISCHARGE HOME Condition: Stable Grupo Lopez MD Nov 21, 2017 03:12
[2017-11-21] MEDS: RESP: ALBUTEROL 2.5 MG/3 ML NEB (SCH) INH ×2 (03:25→03:26)
[2017-11-21] MEDS ORDERED: SODIUM CHLORIDE 0.9% FLUSH 10 ML FLUSH IVF PRN (03:30)
[2017-11-21 03:32] VITALS: O2SAT 96
--- NOTE | 2017-11-21 03:42 | RADRPT ---
EXAM DATE/TIME: 11/21/2017 03:29 [facility] COMPARISON: CHEST SINGLE AP, July 01, 2017, 14:08. INDICATIONS : Short of breath. MEDICAL HISTORY : Asthma. SURGICAL HISTORY : None. ENCOUNTER: Initial ACUITY: 1 week PAIN SCORE: 0/10 LOCATION: Bilateral chest FINDINGS: A single view of the chest demonstrates the lungs to be symmetrically aerated without evidence of mas s, infiltrate or effusion. Heart is mildly enlarged, stable from prior. The central bronchopulmonar y markings well delineated.. Osseous structures are intact. CONCLUSION: Cardiomegaly. The lungs are clear. Jg Rico MD on November 21, 2017 at 3:39 Board Certified Radiologist. This report was verified electronically.
[2017-11-21 04:06] LABS: BASOPHIL % 0.6 % (0.0-2.0); EOSINOPHIL # 0.3 TH/MM3 (0-0.4); EOSINOPHIL % 3.8 % (0.0-4.0); HEMATOCRIT 36.6 % (35.0-46.0); LYMPH % 31.4 % (9.0-44.0); LYMPHOCYTE # 2.2 TH/MM3 (1.0-4.8); MEAN CELL VOLUME 89.1 FL (80.0-100.0); MEAN CORPUSCULAR HEMOGLOBIN 29.2 PG (27.0-34.0); MEAN CORPUSCULAR HGB CONC 32.8 % (32.0-36.0); MEAN PLATELET VOLUME 6.4 FL (7.0-11.0); MONO % 6.9 % (0.0-8.0); MONOCYTE # 0.5 TH/MM3 (0-0.9); NEUT % 57.3 % (16.0-70.0); PLATELET COUNT 229 TH/MM3 (150-450); RED BLOOD COUNT 4.11 MIL/MM3 (4.00-5.30)
[2017-11-21 04:13] VITALS: BP 133/68; PULSE 75; RESP 16; O2SAT 97
[2017-11-21 04:15] LABS: BICARBONATE 29.3 MEQ/L (21.0-32.0); BLOOD UREA NITROGEN 14 MG/DL (7-18); CALCIUM 8.4 MG/DL (8.5-10.1); CHLORIDE 107 MEQ/L (98-107); CREATININE 0.68 MG/DL (0.50-1.00); GLOMERULAR FILTRATION RATE 87 ML/MIN (>89); GLUCOSE,RANDOM 135 MG/DL (74-106); SODIUM (NA) 141 MEQ/L (136-145)
[2017-11-21 04:19] LABS: TROPONIN I LESS THAN 0.02 NG/ML (0.02-0.05)
--- NOTE | 2017-11-21 17:26 | EKG ---
Date Performed: 11/21/2017 Time Performed: 04:24:40 PTAGE: 62 years EKG: Sinus rhythm LOW QRS VOLTAGE IN PRECORDIAL LEADS NONSPECIFIC T-WAVE ABNORMALITY BORDERLINE ECG PREVIOUS TRACING : 06/27/2017 20.20 DOCTOR: Thad Phipps Interpretating Date/Time 11/21/2017 17:21:58
== END 2017-11-21 05:19 | disposition home or self-care (01) ==
LOC: NEPE 02:30
DX: J06.9 Acute upper respiratory infection, unspecified (principal); J45.909 Unspecified asthma, uncomplicated; G47.30 Sleep apnea, unspecified; R94.31 Abnormal electrocardiogram [ECG] [EKG]; I48.91 Unspecified atrial fibrillation; F31.9 Bipolar disorder, unspecified; M79.7 Fibromyalgia; F43.10 Post-traumatic stress disorder, unspecified; Z87.891 Personal history of nicotine dependence
CPT/HCPCS: 71045; 80048; 83880; 84484; 85025; 93005; 94640; 94664; 99285; J7613